=== PATIENT | female | born 1955 | race Caucasian/White ===

== ENCOUNTER 2018-04-30 14:27 | Inpatient (IN) | payer BC, OTHER ==
[~2018-04-30] VITALS: Ht 152.4 cm; Wt 131.5 kg
[2018-04-30 14:30] VITALS: BP 139/112
[2018-04-30 16:46] LABS: URINE BILIRUBIN NEGATIVE (Negative); URINE BLOOD 1+ (Negative); URINE CLARITY SLIGHTLY CLOUDY; URINE COLOR YELLOW; URINE GLUCOSE-RANDOM* NEGATIVE (Negative); URINE KETONES NEGATIVE (Negative); URINE LEUKOCYTES-REFLEX NEGATIVE (Negative); URINE NITRITE-REFLEX NEGATIVE (Negative); URINE PROTEIN (DIPSTICK) NEGATIVE (Negative); URINE UROBILINOGEN 0.2 E.U./dl (0.2-1.0)
[2018-04-30 16:55] LABS: SQUAMOUS 0-3 Few /LPF (0-3)
[2018-04-30 16:56] LABS: CASTS None Seen /LPF (None Seen); CRYSTALS None Seen /LPF (None Seen); URINE RBC 0-2 Rare /HPF (0-2); URINE WBC-REFLEX 0-5 Rare /HPF (0-5)
[2018-04-30 17:04] LABS: HEMATOCRIT 36.9 % (37.0-47.0); HEMOGLOBIN 11.7 gm/dL (12.0-15.0); MCH 22.3 pg (26.0-34.0); MCHC 31.8 g/dL (28.0-37.0); MCV 70.2 fL (80.0-100.0); PLATELET COUNT 315 thou/uL (150-400); RBC 5.26 mil/uL (4.20-5.00); RDW 17.3 % (10.5-14.5); WBC 24.2 thou/uL (4.0-11.0)
[2018-04-30 17:13] LABS: ANION GAP 10 mmol/L (7-16); BUN 65 mg/dL (7-18); CALCIUM 10.3 mg/dL (8.5-10.1); CHLORIDE 98 mmol/L (98-107); CO2 28 mmol/L (21-32); CREATININE 2.5 mg/dL (0.6-1.0); GLUCOSE 139 mg/dL (74-106); POTASSIUM 4.4 mmol/L (3.5-5.1); SODIUM 136 mmol/L (136-145)
[2018-04-30 17:20] LABS: ABSOLUTE NEUTROPHILS 7.3 thou/uL (1.4-8.2); ANISOCYTOSIS 1+; ATYPICAL LYMPHS 1 %; HYPOCHROMASIA 1+; MICROCYTES 1+
[2018-04-30 17:22] LABS: TROPONIN-I <0.06 ng/mL (<0.06)
[2018-04-30 18:08] VITALS: BP 93/48
[2018-04-30] MEDS ORDERED: MYRBETRIQ50 MG PO (18:17)
[2018-04-30] MEDS ORDERED: DEMADEX20 MG PO (18:18)
[2018-04-30] MEDS ORDERED: OXYCONTIN10 M1 PO (18:18)
[2018-04-30] MEDS ORDERED: SAVAYSA60 MG PO (18:19)
[2018-04-30] MEDS ORDERED: ZAROXOLYN 5MG TA5 MG PO (18:19)
[2018-04-30] MEDS ORDERED: LIORESAL 10 MG10 MG PO (18:20)
[2018-04-30] MEDS ORDERED: ACCUPRIL40 MG PO (18:20)
[2018-04-30] MEDS ORDERED: KLOR-CON 1010 MEQ PO ×2 (18:21)
[2018-04-30] MEDS ORDERED: POTASSIUM99 MG PO (18:22)
[2018-04-30] MEDS ORDERED: MAGOX 400400 MG PO (18:22)
[2018-04-30] MEDS ORDERED: ATENOLOL 100MG100 MG PO (18:23)
[2018-04-30] MEDS ORDERED: CARDIZEM CD120 MG PO (18:23)
[2018-04-30] MEDS ORDERED: PRAVACHOL40 MG PO (18:24)
[2018-04-30] MEDS ORDERED: PERCOCET PO (18:24)
[2018-04-30 18:27] VITALS: BP 171/73
[2018-04-30 18:38] VITALS: BP 119/60
[2018-04-30 20:50] VITALS: BP 111/51
[2018-05-01 05:13] VITALS: BP 120/54
[2018-05-01 05:35] LABS: HEMATOCRIT 34.4 % (37.0-47.0); HEMOGLOBIN 10.6 gm/dL (12.0-15.0); MCH 21.5 pg (26.0-34.0); MCHC 30.8 g/dL (28.0-37.0); MCV 69.8 fL (80.0-100.0); RBC 4.93 mil/uL (4.20-5.00); RDW 17.1 % (10.5-14.5); WBC 18.1 thou/uL (4.0-11.0)
[2018-05-01 05:45] LABS: CALCIUM 9.9 mg/dL (8.5-10.1); CREATININE 1.6 mg/dL (0.6-1.0); POTASSIUM 4.1 mmol/L (3.5-5.1)
[2018-05-01 07:30] VITALS: BP 109/55
--- NOTE | 2018-05-01 09:35 | 2DMMODE ---
[facility] [address] [place] [address] 2 D/M-MODE ECHOCARDIOGRAM Name: WINNIE INGRAMJOSE Mendoza Room #: 450-P [facility] IN .#: [id number] Admission: 04/30/18 Attend Phys: Tin Beltran MD Discharge: Date of : 51 Date of Service: 05/01/18 0935 Report #: [id number] THIS REPORT FOR: //name// APPROVED REPORT Study performed: 05/01/2018 08:25:52 EXAM: Comprehensive 2D, Doppler, and color-flow Echocardiogram Patient Location: In-Patient Room #: [facility] Status: routine BSA: 2.19 HR: 56 bpm BP: 109/55 mmHg Rhythm: NSR Other Information Study Quality: Technically Difficult Technically limited study due to body habitus. Indications Hypertension/HDD edema, hx afib 2D Dimensions RVDd: 33.08 mm IVSd: 12.87 (7-11mm) LVOT Diam: 20.48 (18-24mm) LVDd: 50.63 mm PWd: 11.57 (7-11mm) Ascending Ao: 36.40 (22-36mm) LVDs: 32.40 (25-40mm) Aortic Root: 30.21 mm IVC: 19.00 mm Volumes Left Atrial Volume (Systole) Single Plane 4CH: 58.51 mL Single Plane 2CH: 62.13 mL LA ESV Index: 30.00 mL/m2 Aortic Valve AoV Peak Eligio.: 1.71 m/s AO Peak Gr.: 11.67 mmHg LVOT Max P.03 mmHg LVOT Max V: 1.58 m/s PAM Vmax: 3.05 cm2 Mitral Valve [facility] [address] [place] [address] 2 D/M-MODE ECHOCARDIOGRAM Name: TERI INGRAM Room #: [address] [place] [address] [place] [facility]#: [id number] Admission: 04/30/18 Attend Phys: Tin Beltran MD Discharge: Date of : 51 Date of Service: 05/01/18 0935 Report #: [id number] E/A Ratio: 1.3 MV Decel. Time: 262.42 ms MV E Max Eligio.: 0.93 m/s MV A Eligio.: 0.71 m/s MV PHT: 76.10 ms IVRT: 110.73 ms Pulmonary Valve PV Peak Eligio.: 1.13 m/s PV Peak Gr.: 5.16 mmHg Pulmonary Vein P Vein S: 0.64 m/s P Vein A: 0.23 m/s P Vein D: 0.47 m/s P Vein A Dur.: 152.2 msec P Vein S/D Ratio: 1.36 Tricuspid Valve RAP Estimate: 5.00 mmHg Left Ventricle The left ventricle is normal size. There is normal LV segmental wall motion. Mild concentric left ventricular hypertrophy. The left ventricular systolic function is normal. The left ventricular ejection fraction is within the normal range. LVEF is 60-65%. The left ventricular diastolic function is normal. Right Ventricle The right ventricle is normal size. The right ventricular systolic function is normal. Atria The left atrium size is normal. Right atrium is mildly dilated. Aortic Valve The aortic valve is not well visualized. No aortic regurgitation is present. There is no aortic valvular stenosis. Mitral Valve The mitral valve is normal in structure. Mild mitral regurgitation. No evidence of mitral valve stenosis. Tricuspid Valve Tricuspid valve is not well visualized. There is no tricuspid valve regurgitation noted. Unable to assess PA pressure[place] [address] 2 D/M-MODE ECHOCARDIOGRAM Name: TERI INGRAM Reji Room #: 450-P [facility] IN ..#: [id number] Admission: 04/30/18 Attend Phys: Tin Beltran MD Discharge: Date of : 51 Date of Service: 05/01/18 0935 Report #: [id number] The pulmonary valve is normal in structure. There is no pulmonic valvular regurgitation. Great Vessels The aortic root is normal in size. IVC is normal in size and collapses >50% with inspiration. Pericardium There is no pericardial effusion. <Conclusion> Technically difficult study The left ventricular systolic function is normal. There is normal LV segmental wall motion. LVEF is 60-65%. Normal diastolic function The aortic valve is not well visualized. No aortic regurgitation or stenosis The mitral valve is normal in structure. Mild mitral regurgitation. Unable to assess pulmonary artery pressure. There is no pericardial effusion. <ELECTRONICALLY SIGNED> By: Faizan Mora MD, FACC 05/01/1835 4 4 Faizan Mora MD, FACC /INF
[2018-05-01 15:00] VITALS: BP 150/75
[2018-05-01 20:15] VITALS: BP 149/54; BP 149/66
[2018-05-01 20:16] VITALS: BP 168/83
[2018-05-02 05:27] VITALS: BP 148/75
[2018-05-02 06:19] LABS: CALCIUM 10.8 mg/dL (8.5-10.1); CREATININE 1.2 mg/dL (0.6-1.0); POTASSIUM 3.9 mmol/L (3.5-5.1)
[2018-05-02 07:34] VITALS: BP 168/73
[2018-05-02 15:15] VITALS: BP 124/67
[2018-05-02] MEDS ORDERED: AZITHROMYCIN 2250 MG PO (16:21)
[2018-05-02] MEDS ORDERED: DEMADEX20 MG PO (16:22)
[2018-05-02] MEDS ORDERED: PREDNISONE 10 M10 MG PO (16:23)
[2018-05-02 16:41] VITALS: BP 124/67
--- NOTE | 2018-05-03 10:35 | HC ---
[place] [address] CONSULTATION Name: TERI INGRAM Room #: 450-P [facility] [place] ..#: [id number] Admission: 04/30/18 Attend Phys: Tin Beltran MD Discharge: 05/02/18 Date of : 51 Report #: [id number] THIS REPORT FOR: //name// CC: Tin Edmond MD [facility] Lemuel Zarate MD INFECTIOUS DISEASE CONSULTATION ATTENDING PHYSICIAN: Tin Beltran M.D. REASON FOR CONSULTATION: Positive blood culture. HISTORY OF PRESENT ILLNESS: The patient is a 62-year-old white woman admitted through the Emergency Room on 04/30/2018 with lightheadedness and visual disturbances that had come after oral diuretics were increased. The patient is found to have leukocytosis, but she is known to have chronic lymphocytic leukemia. Her initial workup included a set of blood cultures and 1 out of 2 samples revealed gram-positive cocci and vancomycin initiated. The patient previously on Zithromax and Rocephin. The patient today is feeling better. Her symptomatology is definitely improved. Her azotemia also improved. She has received some intravenous fluids and she is on a large dose of systemic steroids. On admission, the patient's blood pressure was as low as 93/48; subsequently, this stabilizes and goes to 168/73. DRUG ALLERGIES: AMOXICILLIN, NAUSEA AND VOMITING. MEDICATIONS: The patient is on treatment with vancomycin 1 g IV every 12 hours, azithromycin 500 mg IV every 24 hours and Rocephin 1 gram IV every 24 hours. She is also receiving treatment with lisinopril 40 mg daily, torsemide 20 mg p.o. daily, albuterol inhalation treatments every 4 hours, atenolol 100 mg daily, diltiazem 120 mg daily, methylprednisolone 62.5 mg IV every 8 hours, baclofen 10 mg p.o. t.i.d. and subcutaneous heparin 5000 units t.i.d. She is on p.r.n. acetaminophen and ondansetron. At home, this patient receives treatment with Mirabegron 50 mg p.o. daily, torsemide 40 mg daily, metolazone 5 mg p.o. daily, edoxaban tosylate 60 mg p.o. daily and Accupril 40 mg p.o. daily. PAST MEDICAL HISTORY: Chronic atrial fibrillation. Diastolic congestive heart failure. Chronic lymphocytic leukemia. Oophorectomy. Previous lumbar laminectomy x [address] Robel Angulo at [facility]. Chronic kidney disease with acute kidney injury, improved with intravenous fluids. SOCIAL HISTORY: See H and P, old records. FAMILY HISTORY: See H and P, old records. [address] [address] CONSULTATION Name: TERI INGRAM Reji Room #: 450-P [facility] IN M.R.#: [id number] Admission: 04/30/18 Attend Phys: Tin Beltran MD Discharge: 05/02/18 Date of : 51 Report #: [id number] REVIEW OF SYSTEMS: See H and P and as above. PHYSICAL EXAMINATION: GENERAL: Obese woman presenting with following vital signs. VITAL SIGNS: Afebrile since admission. Her blood pressure was 93/48 on 04/30/2018 at 1733 hours. After hydration, her blood pressure goes to 168/73. Pulse 74, respirations 20 and O2 saturation 97% on room air. No supplemental oxygen. HEENT: Head normocephalic, atraumatic. Pupils reactive. Mouth, no thrush. Head examination reveals a couple of right-sided parietal and occipital cysts that on CT scan of the head appear to be calcified. NECK: Supple. No thyromegaly or lymphadenopathy. LUNGS: Clear. HEART: S1, S2. No gallop. ABDOMEN: Infraumbilical laparotomy scars. Soft. No masses or megaly. EXTREMITIES: Remain mildly edematous at ankles, but improved according to the patient. NEUROLOGIC: Grossly within normal limits. LABORATORY DATA: On admission, BUN 65; repeat today 41. Creatinine on admission 2.5 and repeat today 1.2. Glucose 193 mg/dL. WBC 24,200, hemoglobin 11.7 g/dL and platelets 315,000. The white blood cell count differential reveals 30% segmented neutrophils, 66% lymphocytes at the time of admission. The urinalysis reveal 1+ blood and bacteriuria; otherwise, essentially negative. MICROBIOLOGY DATA: Urine cultures negative so far. Nasopharyngeal smear negative for influenza A and B. One out of 2 blood cultures revealed gram-positive cocci, identification and sensitivity is pending. Per Radiology evaluation, a CT scan of the head revealed no significant abnormalities, other than calcified cysts on the right posterior parietal and occipital region, possibly calcified as sebaceous cyst. Also, the patient had thickening of the ethmoid, sphenoid and maxillary sinus and linings. Chest x-ray, no acute cardiopulmonary process. There may be some cardiomegaly. ASSESSMENT: 1. Single positive blood culture with Gram-positive cocci, suspect contaminant. 2. Chronic lymphocytic leukemia. 3. Acute kidney injury secondary to dehydration, improved. 4. Chronic atrial fibrillation. 5. Diastolic congestive heart failure. 6. Calcified cysts on the right parietal and occipital regions on the subcutaneous tissues. 7. History of oophorectomy and lumbar laminectomies. SUGGESTIONS AND RECOMMENDATIONS: Since I suspect the blood cultures may be [address] [place] [address] CONSULTATION Name: JUAN JOSE,TERI L Room #: 450-P [facility] IN .R.#: [id number] Admission: 04/30/18 Attend Phys: Tin Beltran MD Discharge: 05/02/18 Date of : 51 Report #: [id number] contaminated blood cultures, we will discontinue the IV vancomycin, since most likely the main problem is that of dehydration. We will proceed to discontinue Rocephin as well as Zithromax for 1 or 2 more days and discontinue. We will obtain ESR, CRP, which may confirm the suspicion that no infection is present at the present time. Dr. Beltran, thank you for requesting my suggestions. <ELECTRONICALLY SIGNED> By: Valentin Yoder MD 05/03/18 1035 [id number] [id number] Valentin Yoder MD /nt
== END 2018-05-02 18:43 | disposition home or self-care (01) | DRG 683 ==
LOC: ER 14:27 → EROBS 18:03 → 4W 18:03
PROVIDERS: Physician Assistant; ADMIT Hospitalist
DX: N17.9 Acute kidney failure, unspecified (principal); Z68.43 Body mass index [BMI] 50.0-59.9, adult; I50.30 Unspecified diastolic (congestive) heart failure; I13.0 Hypertensive heart and chronic kidney disease with heart failure and stage 1 through stage 4 chronic kidney disease, or unspecified chronic kidney disease; E66.9 Obesity, unspecified; E86.0 Dehydration; I48.2 Chronic atrial fibrillation; N18.9 Chronic kidney disease, unspecified; M19.90 Unspecified osteoarthritis, unspecified site; M54.9 Dorsalgia, unspecified; I48.0 Paroxysmal atrial fibrillation; E78.5 Hyperlipidemia, unspecified; I35.8 Other nonrheumatic aortic valve disorders; J32.9 Chronic sinusitis, unspecified; Z90.722 Acquired absence of ovaries, bilateral; Z85.6 Personal history of leukemia; Z79.899 Other long term (current) drug therapy; Z88.8 Allergy status to other drugs, medicaments and biological substances
CPT/HCPCS: 10045

== ENCOUNTER → 2019-01-23 | Outpatient (CLI) | payer OTHER, MEDICARE ==
[~2019-01-23] MED LIST: ACCUPRIL40 MG PO; ATENOLOL 100MG100 MG PO; AZITHROMYCIN 2250 MG PO; CARDIZEM CD120 MG PO; DEMADEX20 MG PO; KLOR-CON 1010 MEQ PO; LIORESAL 10 MG10 MG PO; MAGOX 400400 MG PO; MYRBETRIQ50 MG PO; NORCO 5-325 TA1 EAC1 PO; OXYCONTIN10 M1 PO; PERCOCET PO; POTASSIUM99 M1 PO; POTASSIUM99 MG PO; PRAVACHOL40 MG PO; PREDNISONE 10 M10 MG PO; SAVAYSA60 MG PO; VOLTAREN GEL 1100 G1 TOP; XARELTO10 M1 PO; ZAROXOLYN 5MG TA5 MG PO
== END ==
LOC: HYPER 15:01
DX: L97.211 Non-pressure chronic ulcer of right calf limited to breakdown of skin (principal); L97.811 Non-pressure chronic ulcer of other part of right lower leg limited to breakdown of skin; I89.0 Lymphedema, not elsewhere classified; I10 Essential (primary) hypertension; I25.10 Atherosclerotic heart disease of native coronary artery without angina pectoris; I48.20 Chronic atrial fibrillation, unspecified; E66.01 Morbid (severe) obesity due to excess calories; R60.0 Localized edema; M19.90 Unspecified osteoarthritis, unspecified site; F41.9 Anxiety disorder, unspecified; Z68.43 Body mass index [BMI] 50.0-59.9, adult; Z90.710 Acquired absence of both cervix and uterus; Z85.6 Personal history of leukemia

== ENCOUNTER → 2019-02-08 | Outpatient (CLI) | payer OTHER, MEDICARE ==
[~2019-02-08] MED LIST changes: -NORCO 5-325 TA1 EAC1 PO; -POTASSIUM99 M1 PO; -VOLTAREN GEL 1100 G1 TOP; -XARELTO10 M1 PO
== END ==
LOC: HYPER 02:30
DX: L97.812 Non-pressure chronic ulcer of other part of right lower leg with fat layer exposed (principal); L97.211 Non-pressure chronic ulcer of right calf limited to breakdown of skin; I89.0 Lymphedema, not elsewhere classified; E66.01 Morbid (severe) obesity due to excess calories; R60.0 Localized edema; I48.20 Chronic atrial fibrillation, unspecified; I10 Essential (primary) hypertension; I25.10 Atherosclerotic heart disease of native coronary artery without angina pectoris; M19.90 Unspecified osteoarthritis, unspecified site; Z85.6 Personal history of leukemia; Z68.43 Body mass index [BMI] 50.0-59.9, adult; F41.9 Anxiety disorder, unspecified

== ENCOUNTER → 2019-02-22 | Outpatient (CLI) | payer OTHER, MEDICARE | LOC: HYPER 05:04 | DX: L97.211 Non-pressure chronic ulcer of right calf limited to breakdown of skin (principal); I89.0 Lymphedema, not elsewhere classified; E66.8 Other obesity; I48.20 Chronic atrial fibrillation, unspecified; I10 Essential (primary) hypertension; I48.91 Unspecified atrial fibrillation; I25.10 Atherosclerotic heart disease of native coronary artery without angina pectoris; M19.90 Unspecified osteoarthritis, unspecified site; E66.01 Morbid (severe) obesity due to excess calories; R60.0 Localized edema; R05 Cough; F41.9 Anxiety disorder, unspecified; Z68.43 Body mass index [BMI] 50.0-59.9, adult ==

== ENCOUNTER → 2019-03-20 | Outpatient (CLI) | payer OTHER, MEDICARE ==
[~2019-03-20] VITALS: Ht 162.6 cm; Wt 131.5 kg
[~2019-03-20] MED LIST changes: +NORCO 5-325 TA1 EAC1 PO; +POTASSIUM99 M1 PO; +VOLTAREN GEL 1100 G1 TOP; +XARELTO10 M1 PO
[2019-03-20 14:42] VITALS: BP 140/71
--- NOTE | 2019-03-20 15:06 | NUR ---
Pain Clinic Assessment: 1. History of Osteoarthritis: KNEES LEFT HIP SPINE History of Rheumatoid Arthritis: DENIES 2. Height: 5 ft. 4 in. 162.6 cm. Weight: 290.0 lb. oz. 131.544 kg. Patient's BMI: 49.8 3. Vital Signs: BP: 140/71 Pulse: 66 Resp: 14 Temp: 02 Sat: 99 ECG Mon: 4. Pain Intensity: 4-6 5. Fall Risk: Dizziness: Y Needs help standing or walking: Y Fallen in the last 3 months: Y Fall risk comments: 6. Patient on Blood Thinner: XARELTO 7. History of Hypertension: Y 8. Opioid Therapy greater than 6 weeks: Y Opiate Contract Signed: 9. Risk Assessment Tool Provided: 10. Functional Assessment Tool: 11. Recreational Drug Use: Never Drug Type: Tobacco Use: Never Smoker Tobacco Type: Amount or Packs/day: How Many Years: Alcohol Use: Yes Frequency: Special Occasions Quant:
--- NOTE | 2019-03-21 12:03 | HPC ---
[facility] [place] [address] PAIN MANAGEMENT CONSULTATION Name: TERI INGRAM Room #: REG [facility].#: [id number] Admission: 03/20/19 Attend Phys: Felix Robertson DO Discharge: Date of : 51 Report #: [id number] THIS REPORT FOR: //name// CC: Felix Zarate DATE OF SERVICE: 03/20/2019 REFERRING NURSE PRACTITIONER: Catie Perez. CHIEF COMPLAINT: Bilateral knee pain. HISTORY OF PRESENT ILLNESS: As you know, the patient is a class 3 morbidly obese 63-year-old female with longstanding history of bilateral knee pain. She has been advised by Orthopedics. She needs to undergo total knee arthroplasty, but due to her weight, she is not a candidate to undergo the procedure. She has trialled conservative treatment option utilizing kwro-hfe-[id number] medications such as nonsteroidal anti-inflammatory, Salonpas patches and other topical creams without benefit. She has undergone bilateral intra-articular knee injections with steroid medications, which provided some benefit, also undergoing Synvisc injections and Supartz injections, though these provided only minimal improvement in pain. She sought evaluation through Neurosurgery to discuss bilateral knee pain being considered a possible lumbar spine issue. She was evaluated by Neurosurgery and advised that the bilateral knee pain is not consistent with lumbar radiculopathy and she was subsequently referred to our clinic with the suggestions of undergoing genicular nerve ablations. The patient indicates today pain is continuous and steady with momentary and transient exacerbation of symptoms. She describes the pain as shooting, crushing, sharp, stabbing, tender. She places current pain score 4/10, daily average of 6/10, worst pain has been 8/10. The patient states standing, walking, any type of weightbearing and even sometimes lying down exacerbates her bilateral knee pain. Heat, pool exercises and seated position tends to improve pain. She has been referred to our service to discuss treatment options for bilateral knee pain due to severe osteoarthritis secondary to body habitus. PAST MEDICAL HISTORY: 1. Chronic anemia. 2. Hypertension. 3. CLL. 4. Degenerative joint disease. 5. Osteoarthritis. 6. Class 3 morbid obesity. PAST SURGICAL HISTORY: [facility] [address] [place] [address] PAIN MANAGEMENT CONSULTATION Name: TERI INGRAM Room #: REG [facility].#: [id number] Admission: 03/20/19 Attend Phys: Felix Robertson DO Discharge: Date of : 51 Report #: [id number] 1. Left oophorectomy. 2. Ulnar reduction, left sided. 3. Right total shoulder arthroplasty. 4. Lumbar laminectomy x 3. SOCIAL HISTORY: The patient denies tobacco, IV or illicit drug use. Admits occasional alcohol beverage. 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 She is not receiving workmen's compensation or is she trying to obtain disability benefits. She is not in litigation in regards to pain. She is unaccompanied today. REVIEW OF SYSTEMS: Positive for fatigue and weakness, frequent and recurrent headaches, eye disease, wearing corrective eyewear, hearing loss with tinnitus, nosebleeds, shortness of breath, walking or lying flat, atrial fibrillation, palpitations, changes in bowel movements, frequent diarrhea interspersed with constipation, frequent urination, nocturia, incontinence with dribbling to urine, sexual difficulty, rash and itching, changes in skin color and texture, hair and nail texture changes, lightheadedness and dizziness, numbness and tingling sensations, head injury, excessive urination, heat and cold intolerance, bleeding and bruising tendencies, anemia and morbid obesity. All other review of systems negative per 12-point review of systems other than those listed in history of present illness. Pain impact score 46/70 indicating moderate to severe interference of daily activities secondary to pain. ALLERGIES: CLAVULANIC ACID and AMOXICILLIN. CURRENT MEDICATIONS: Hydrocodone 5/325 one tab every 6 hours p.r.n. for pain, diclofenac gel 1% solution applied topically up to 4 times a day, Xarelto 10 mg per day, Percocet 5/325 one tab p.o. q. 8 hours p.r.n., extreme pain, pravastatin 40 mg per day, diltiazem 120 mg once a day, atenolol 100 mg once a day, magnesium oxide 400 mg once a day, potassium gluconate 99 mg once a day, baclofen 10 mg 3 times a day p.r.n., quinapril 40 mg per day, Myrbetriq 50 mg once a day. IMAGING: No imaging available for the knees. Imaging of the lumbar spine obtained on 03/09/2019 shows advanced spondylosis without severe central canal stenosis. There are multilevel severe neural foraminal narrowing at L2-L3, L3-L4 and L4-L5. PQRS: The patient has known osteoarthritic changes of the lumbar spine, bilateral knees, left hip. No rheumatoid arthritis. She is placing pain intensity today 4-6/10. She is a fall risk, has had a fall in last 3 months, but does not utilize any type of ambulatory device. She is on blood thinner in the form of Xarelto. She is treated for hypertension. She has been on [address] [address] PAIN MANAGEMENT CONSULTATION Name: TERI INGRAM Room #: REG [facility]#: [id number] Admission: 03/20/19 Attend Phys: Felix Robertson DO Discharge: Date of : 51 Report #: [id number] opioids and has a low to moderate level of opioid addiction potential based on our assessment tool. Pain impact score 46/70 equaling moderate to severe interference of daily activities secondary to pain. PHYSICAL EXAMINATION: VITAL SIGNS: Blood pressure 140/71, pulse 66, respiratory rate 14 and unlabored. The patient is 99% on room air. Height 5 feet 4 inches tall, weight 290 pounds, BMI calculated 49.8. GENERAL: Well-developed, well-nourished, well-hydrated, class 3 morbidly obese 63-year-old female, appears her stated age. She is placing pain today 4-10/02. HEENT: Normocephalic, atraumatic. Pupils equal, round and reactive to light. Extraocular muscles are intact. Sclerae nonicteric without injection. NEUROLOGIC: Cranial nerves 2-12 grossly intact. Speech fluent. The patient deemed a fair historian. LUNGS: Clear to auscultation bilaterally. No wheeze, rhonchi, no rales. CARDIOVASCULAR: Regular, without murmur, gallop or rub. ABDOMEN: Soft, obese, normoactive bowel sounds. EXTREMITIES: Show no clubbing, no cyanosis, bilateral lower extremity 2+ nonpitting edema. MUSCULOSKELETAL: The patient has a palpatory tenderness over the bilateral knees. Pain is elicited with standing from a seated position. There is pain elicited with both active and passive range of motion of bilateral knees today. ASSESSMENT: 1. Bilateral knee pain. 2. Severe bilateral knee osteoarthritis. 3. Severe morbid obesity. 4. Chronic intractable pain. PLAN: 1. Based on today's physical exam and history the patient has provided, the description the patient uses in regards to pain as well as the location of symptoms, likely source of the patient's pain is the knees themselves. I do not note any radicular symptoms that would be consistent with the lumbar spine radiating to the knee itself. The patient has no pain or symptoms in the distribution of L4, which would be a dermatomal responsible for the innervation and pain generation. It does appear the patient is suffering from worsening osteoarthritic changes of the knees due to her excessive weight. We have discussed with the patient's treatment options for bilateral knee pain today. The following was discussed with the patient. We discussed physical therapy, stretching exercises and a concerted effort at weight loss. We discussed medication management utilizing either topical agent, which can have a limited effects. We discussed adjustments in her current medications, providing an oral consistent nonsteroidal anti-inflammatory as an option. She is already on opioids being provided by her neurosurgeon and those did not be adjusted further and are not typically indicated as a long-term treatment for osteoarthritic [address] [address] PAIN MANAGEMENT CONSULTATION Name: TERI INGRAM Room #: REG [facility] Story#: [id number] Admission: 03/20/19 Attend Phys: Felix Robertson DO Discharge: Date of : 51 Report #: [id number] pain. We also discussed intra-articular knee injections utilizing steroid medications. I do not feel that Synvisc or Supartz will provide much in the way of benefit as the patient has significant enough changes that the medication will extravasate from the knees quite quickly due to the weight and the meniscal injuries that have been noted. Steroid injections can provide some benefit and have in the past and this might be beneficial. We did discuss the possibility of having the patient look into genicular nerve blocks and ultimately, radiofrequency lesioning of those nerves. We do not provide this at any of our facility. She would have to seek another physician to be able to perform this procedure. She has seen Dr. Anthony Virk, who advised he could perform the procedure, but did not warn the patient about denervation concerns and what may happen ultimately to the joint with that denervation. The patient can look into this treatment option, though we would not recommend it on knees that are not treated with total knee arthroplasties as denervation can lead to degradation of the joint further. We also discussed the surgical options, which I believe, the patient will be needing sooner rather than later. I do understand that her weight is a concern and she could discuss this with her orthopedic surgeon and her primary care physician in regards to possible bariatric surgery to assist in weight loss, thus making the patient a candidate for total knee arthroplasty. After this very long discussion with the patient in regards to treatment options, the following was proposed. 2. We have advised the patient we will be willing to provide bilateral knee injections with steroids under fluoroscopic guidance as our treatment course. The patient would have to have clearance to come off her Xarelto for 3 days prior to the procedure, so that we can safely perform this injection without causing the potential of increased risk for hemarthrosis. The patient will gain clearance to come off the Xarelto and return to undergo bilateral knee injections next week. We have made the patient a tentative appointment if she needs to adjust that appointment or cannot come off the Xarelto, she can call and cancel. 3. We wish to thank nurse practitioner, Chris, for the referral of the patient to our clinic. We will trial the injections proposed today and return her care to your capable services. If further evaluation or consideration for the genicular nerve blocks is recommended, then you will have to refer to physicians that perform this procedure. Again, we wish to thank you for the opportunity to see this patient in consultation. <ELECTRONICALLY SIGNED> By: Felix Robertson DO 03/21/19 1203 [id number] Felix Robertson DO /nt
== END ==
LOC: PAIN 06:52
DX: M25.561 Pain in right knee (principal); M25.562 Pain in left knee; I10 Essential (primary) hypertension; M17.0 Bilateral primary osteoarthritis of knee; G89.4 Chronic pain syndrome

== ENCOUNTER → 2019-03-27 | Outpatient (CLI) | payer OTHER, MEDICARE ==
[~2019-03-27] VITALS: Ht 157.5 cm; Wt 136.6 kg
[2019-03-27 10:24] VITALS: BP 133/71
--- NOTE | 2019-03-27 10:38 | NUR ---
Pain Clinic Assessment: 1. History of Osteoarthritis: KNEES LEFT HIP SPINE History of Rheumatoid Arthritis: DENIES 2. Height: 5 ft. 2 in. 157.5 cm. Weight: 301.2 lb. oz. 136.624 kg. Patient's BMI: 55.1 3. Vital Signs: BP: 133/71 Pulse: 61 Resp: 20 Temp: 02 Sat: 100 ECG Mon: 4. Pain Intensity: 4 5. Fall Risk: Dizziness: N Needs help standing or walking: Y Fallen in the last 3 months: N Fall risk comments: 6. Patient on Blood Thinner: XARELTO 7. History of Hypertension: Y 8. Opioid Therapy greater than 6 weeks: Y Opiate Contract Signed: 9. Risk Assessment Tool Provided: 3-LOW 10. Functional Assessment Tool: 11. Recreational Drug Use: Never Drug Type: Tobacco Use: Never Smoker Tobacco Type: Amount or Packs/day: How Many Years: Alcohol Use: Yes Frequency: Special Occasions Quant:
--- NOTE | 2019-03-28 12:58 | HPC ---
[facility] [place] [address] PAIN MANAGEMENT CONSULTATION Name: TERI INGRAM Room #: REG [facility].#: [id number] Admission: 03/27/19 Attend Phys: Felix Robertson DO Discharge: Date of : 51 Report #: [id number] THIS REPORT FOR: //name// CC: Felix Zarate DATE OF SERVICE: 03/27/2019 REFERRING PHYSICIAN: Catie Perez RN CHIEF COMPLAINT: Bilateral knee pain. HISTORY OF PRESENT ILLNESS: As you know, the patient is a pleasant, severely morbidly obese female who has a longstanding history of bilateral knee pain. She has been advised by Orthopedics that she will need to undergo total knee arthroplasty as she is now "bone on bone." Unfortunately, given the patient's excessive body weight, she is not a candidate to undergo total knee arthroplasties. She was advised she needs to lose about 100 pounds before this could be considered. Unfortunately, her weight continues to increase as she is unable to participate in daily activities. She is swimming periodically and states that this is somewhat beneficial, but she is not losing weight consistent enough to be able to undergo total knee arthroplasties at present. She was established at today's appointment to undergo bilateral intra-articular knee injections in hopes of improving pain. We did advise the patient if this was ineffective, further treatment options would include only the possibility of stem cell injections she would have to seek another physician to obtain, or possibly discuss her case with a bariatric surgeon to undergo bariatric surgery and thus can then be a candidate for total knee arthroplasty. She returns today to undergo bilateral knee injections. ALLERGIES: CLAVULANIC ACID, AMOXICILLIN. CURRENT MEDICATIONS: See extensive list in chart. SOCIAL HISTORY: The patient denies tobacco, IV or illicit drug use. Admits to an occasional alcohol beverage. 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 IMAGING: No new imaging available. PQRS: The patient has known arthritic changes of the lumbar spine, bilateral knees and left hip. No rheumatoid arthritis. She is placing pain today at 4/10. She is a fall risk, but has not had a fall in the last 3 months. She is on blood thinner in the form of Xarelto and has discontinued the medication in preparation for today's procedure. She is treated for hypertension. She is on [address] [address] PAIN MANAGEMENT CONSULTATION Name: TERI INGRAM Room #: REG CLI [facility]#: [id number] Admission: 03/27/19 Attend Phys: Felix Robertson DO Discharge: Date of : 51 Report #: [id number] chronic opioids and has a [id number] risk of opioid addiction. She is placing a pain impact score at 44/70, [id number] interference in daily activities secondary to pain. PHYSICAL EXAMINATION: VITAL SIGNS: Blood pressure 133/71, pulse is 61, respiratory rate 20 and unlabored. The patient is 100% on room air. Height 5 feet 2 inches tall, weight 301.2 pounds, BMI calculated 55.1. GENERAL: Well-developed, well-nourished, well-hydrated, severely morbidly obese 63-year-old female, appearing stated age, placing current pain score at 4/10. HEENT: Normocephalic, atraumatic. Pupils are equal, round, reactive to light. EXTREMITIES: Show no clubbing, no cyanosis and no significant lower extremity edema. MUSCULOSKELETAL: There is palpatory tenderness noted over the bilateral knees, right greater than left. Pain is elicited with standing from a seated position. Active and passive range of motion of bilateral knees causes intensification of pain. ASSESSMENT: 1. Bilateral knee pain. 2. Bilateral knee osteoarthritis. 3. Severe morbid obesity. 4. Chronic intractable pain. PLAN: 1. The patient returns today in a followup visit to undergo bilateral intra-articular knee injections. She has been evaluated by Orthopedic Surgery and advised she will need a total knee arthroplasty on both sides sooner rather than later, but unfortunately, given her excessive body weight she is not a candidate to undergo the procedure. We did discuss with the patient at the last visit we are limited in what we can provide from an intra-articular standpoint. We determined that steroid injections may be somewhat beneficial and could provide some improvement in symptoms, allowing the patient to return to some of her activities of daily living, but we do understand there is limitation with this medication. We discussed the use of Synvisc and/or Supartz, but all these medications provide is lubrication to the joint, but does not provide any long-term benefit. We also discussed the fact that the patient will likely, if she cannot lose the weight, undergo bariatric surgery to lose the weight she needs to lose to have the total knee arthroplasties, which will then allow the patient to return to her some relative normal function. She has considered these options, but has returned today to undergo intra-articular knee injections. 2. The patient was advised of risks and benefits of intraarticular knee injections. These risks include but are not necessarily limited to bleeding, bruising, infection, worsening pain, no relief of pain; also risk of temporary or permanent muscle weakness, temporary or permanent nerve damage, possible [address] [address] PAIN MANAGEMENT CONSULTATION Name: TERI INGRAM Room #: REG [facility]#: [id number] Admission: 03/27/19 Attend Phys: Felix Robertson DO Discharge: Date of : 51 Report #: [id number] joint destruction and . The patient states understood and wished to proceed. 3. No medication changes made at today's visit. She can continue current medical therapy as previously prescribed. 4. We will see the patient back in a followup visit on an as needed basis for possible next in the series of intra-articular knee injections. PROCEDURE NOTE PROCEDURE: Bilateral intra-articular knee injections under fluoroscopic guidance. DESCRIPTION OF PROCEDURE: After obtaining written consent, the patient was taken back to the fluoroscopy suite, placed in a supine position. The image intensifier was then brought into position over the right knee and AP imaging was obtained. The area of the lateral knee was then prepped and draped in aseptic fashion using chlorhexidine. A 27-gauge 1-1/4 inch needle was then used to anesthetize the skin and subcutaneous tissue overlying the site of injection. A 25-gauge 3-1/2-inch needle was then advanced into the right knee under direct fluoroscopic imaging. Once entering the knee, aspiration noted to be negative for heme; 0.2 mL of Omnipaque injected. An excellent right knee arthrogram was obtained. After negative aspiration for heme, 3 mL of a solution containing 1 mL 40 mg per mL, 40 mg total triamcinolone along with 2 mL bupivacaine 0.5% injected slowly. Needle retracted chcf, flushed with 1 mL of lidocaine 1%, then removed. Sterile bandage was placed over injection site. Our attention was then directed to the left knee. The image intensifier was then brought into position over the left knee and AP imaging was obtained. The area of the lateral knee was then prepped and draped in aseptic fashion using chlorhexidine. A 27-gauge 1-1/4 inch needle was then used to anesthetize the skin and subcutaneous tissue with 2 mL of 1% lidocaine. A 25-gauge 3-1/2 inch spinal needle was advanced under direct fluoroscopy guidance into the left knee joint. After entering the joint, aspiration noted to be negative for heme; 0.3 mL of Omnipaque injected. Excellent left knee arthrogram was obtained. After negative aspiration for heme, 3 mL of a solution containing 1 mL 40 mg per mL, 40 mg total triamcinolone along with 2 mL bupivacaine 0.5% injected slowly. Needle retracted chcf, flushed with 1 mL of 1% lidocaine, then removed. Sterile bandage was placed over the injection site. The patient tolerated both procedures well. [place] [address] PAIN MANAGEMENT CONSULTATION Name: JUAN JOSETERIIDALIA JACOBS Room #: REG [facility] Story#: [id number] Admission: 03/27/19 Attend Phys: Felix Robertson DO Discharge: Date of : 51 Report #: [id number] recovery room in stable condition. No apparent complications. After meeting discharge criteria, the patient was discharged home. <ELECTRONICALLY SIGNED> By: Felix Robertson DO 03/28/19 [id number] Felix Robertson DO /nt
== END | disposition home or self-care (01) ==
LOC: PAIN 06:47
DX: M25.561 Pain in right knee (principal); M25.562 Pain in left knee; M17.0 Bilateral primary osteoarthritis of knee; E66.01 Morbid (severe) obesity due to excess calories; G89.29 Other chronic pain; M16.12 Unilateral primary osteoarthritis, left hip; I10 Essential (primary) hypertension; Z98.890 Other specified postprocedural states; Z79.899 Other long term (current) drug therapy; Z79.01 Long term (current) use of anticoagulants; Z79.891 Long term (current) use of opiate analgesic; Z88.8 Allergy status to other drugs, medicaments and biological substances; Z68.43 Body mass index [BMI] 50.0-59.9, adult

== ENCOUNTER → 2019-04-11 | Outpatient (CLI) | payer OTHER, MEDICARE ==
[~2019-04-11] VITALS: Ht 157.5 cm; Wt 138.1 kg
--- NOTE | ~2019-04-11 | HPC ---
[facility] [place] [address] PAIN MANAGEMENT CONSULTATION Name: TERI INGRAM Room #: REG [facility].#: [id number] Admission: 04/11/19 Attend Phys: Felix Robertson DO Discharge: Date of : 51 Report #: [id number] THIS REPORT FOR: //name// CC: Felix Zarate DATE OF SERVICE: 04/11/2019 CHIEF COMPLAINT: Low back pain, bilateral lower extremity pain, chronic knee pain. HISTORY OF PRESENT ILLNESS: As you know, the patient is a 63-year-old female who has been referred to our service by her neurosurgery team to undergo lumbar epidural injections under fluoroscopic guidance and to address bilateral knee pain. At last visit, the patient underwent bilateral intra-articular knee injections, which provided improvement in symptoms according to the patient of about 30% -40%. She is now placing pain score in her knees at about 6/10. She is also complaining of chronic low back pain, bilateral lower extremity pain for which she is reporting pain score 4/10. She states the pain is dull, aching, numbness and tingling, exacerbated with walking, improves with medications. She has been referred to our clinic by the neurosurgery team to undergo a lumbar epidural injection to determine if she will be amenable to such treatment options. She denies injury or trauma to the low back that may have led to symptom development. ALLERGIES: CLAVULANIC ACID, AMOXICILLIN. CURRENT MEDICATIONS: See chart. SOCIAL HISTORY: The patient denies tobacco, IV or illicit drug use. Admits to occasional alcohol beverage. 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 IMAGING: No new imaging available. PQRS: The patient has known arthritic changes of the lumbar spine, bilateral knees and left hip. No rheumatoid arthritis. She is placing pain intensity today 4/10. She is a fall risk, but has not had a fall in last 3 months. She is on Xarelto, but has discontinued this medication over the past 3 days in preparation for a lumbar epidural injection. She is treated for hypertension. She is on chronic opioids, but has a low opioid addiction potential. Pain impact score 44/70 indicating moderate interference of daily activities secondary to pain. PHYSICAL EXAMINATION: [facility] [address] [place] [address] PAIN MANAGEMENT CONSULTATION Name: TERI INGRAM Room #: REG [facility].#: [id number] Admission: 04/11/19 Attend Phys: Felix Robertson DO Discharge: Date of : 51 Report #: [id number] VITAL SIGNS: Blood pressure 146/84, pulse 68, respiratory rate 20 and unlabored. The patient is 98% on room air. Height 5 feet 2 inches tall, weight 304.4 pounds, BMI calculated 55.7. GENERAL: Well-developed, well-nourished, well-hydrated, severely morbidly obese 63-year-old female, appears stated age, pain is rated today 4/10. HEENT: Normocephalic, atraumatic. Pupils equal, round, reactive to light. Speech fluent. EXTREMITIES: Show no clubbing, no cyanosis, 1-2+ pitting lower extremity edema noted. MUSCULOSKELETAL: Palpatory tenderness is noted over the paraspinal musculature of lower lumbar spine. No spinous process tenderness. Seated straight leg raising negative. Supine straight leg raising essentially negative. Jose's test negative. Modified Gaenslen's positive for axial low back pain. Ankle clonus negative. ASSESSMENT: 1. Lumbar radiculopathy. 2. Lumbosacral spondylosis with radiculopathy. 3. Degeneration of lumbar spine. 4. Chronic intractable pain. 5. Bilateral knee pain. 6. Bilateral knee osteoarthritis. 7. Severe morbid obesity. 8. Chronic intractable pain. PLAN: 1. The patient has returned today in followup visit having noted improvement in the bilateral knee pain with the intra-articular knee injections provided at our last visit. She reports about a 30% overall pain, which is a good improvement for this patient given her body habitus and extent of knee osteoarthritis. We are pleased to see she is seeing improvement and continued analgesic benefit. She returns today requesting a lumbar epidural injection under fluoroscopic guidance for which the patient was originally referred to our clinic by her neurosurgery team. We have discussed with the patient the risks and benefits of a lumbar epidural injection. These risks include but are not necessarily limited to bleeding, bruising, infection, worsening pain, no relief of pain, also risk of temporary or permanent muscle weakness, temporary or permanent nerve damage, possible paralysis, post-dural puncture headache and . The patient states understood and wished to proceed. 2. No medication changes made at today's visit. We recommend the patient to continue current medical therapy as prior prescribed. 3. We will see the patient back in followup visit on an as needed basis for next in the series of lumbar epidural injections or to discuss further treatment for the bilateral knees. [facility] [address] [place] [address] PAIN MANAGEMENT CONSULTATION Name: TERI INGRAM Room #: REG [facility]#: [id number] Admission: 04/11/19 Attend Phys: Felix RobertsonDO Discharge: Date of : 51 Report #: [id number] DESCRIPTION OF PROCEDURE: L5-S1 interlaminar epidural steroid injection under fluoroscopic guidance. This is the first procedure of the second series that the patient is undergoing. After obtaining written consent, the patient was taken back to the fluoroscopy suite, placed in a prone position with pillow under the abdomen to decrease lumbar lordosis. The skin overlying the lumbosacral area was then prepped and draped in aseptic fashion. The L5-S1 vertebral interspace was then identified by AP fluoroscopy. The skin and subcutaneous tissue overlying the target site of injection was anesthetized with 3 mL 1% lidocaine. A 20-gauge 4.5 inch Tuohy needle was then advanced under fluoroscopic guidance towards the epidural space using a left paramedian approach. The epidural space was identified using loss of resistance to air technique. After negative aspiration for heme or cerebrospinal fluid, a total of 1 mL of Omnipaque was injected. A lumbar epidurogram was confirmed using both AP and lateral fluoroscopy. After negative aspiration for heme or cerebrospinal fluid, 5 mL of a solution containing 2 mL 40 mg per mL, 80 mg total triamcinolone along with 3 mL lidocaine 1% was injected in increments. Contrast spread was noted on posterior epidural space. The needle was then retracted approximately half way and needle tract flushed with 1 mL of 1% lidocaine. Needle was then removed. There were no apparent sensory or motor deficits in the lower extremity following the procedure. A sterile bandage was placed over the injection site. The heart rate, pulse, oximetry and blood pressure were continuously monitored after the procedure. There were no apparent complications. The patient tolerated the procedure well and was carefully escorted to the recovery room in stable condition. There were no apparent complications. After meeting discharge criteria, the patient was then discharged home. By: [id number] Felix Robertson DO /nt
[2019-04-11 14:44] VITALS: BP 146/84
--- NOTE | 2019-04-11 14:56 | NUR ---
Pain Clinic Assessment: 1. History of Osteoarthritis: KNEES LEFT HIP SPINE History of Rheumatoid Arthritis: DENIES 2. Height: 5 ft. 2 in. 157.5 cm. Weight: 304.4 lb. oz. 138.075 kg. Patient's BMI: 55.7 3. Vital Signs: BP: 146/84 Pulse: 68 Resp: 20 Temp: 02 Sat: 98 ECG Mon: 4. Pain Intensity: 4 5. Fall Risk: Dizziness: N Needs help standing or walking: Y Fallen in the last 3 months: N Fall risk comments: 6. Patient on Blood Thinner: XARELTO 7. History of Hypertension: Y 8. Opioid Therapy greater than 6 weeks: Y Opiate Contract Signed: 9. Risk Assessment Tool Provided: 3-LOW 10. Functional Assessment Tool: 11. Recreational Drug Use: Never Drug Type: Tobacco Use: Never Smoker Tobacco Type: Amount or Packs/day: How Many Years: Alcohol Use: Yes Frequency: Special Occasions Quant:
== END | disposition home or self-care (01) ==
LOC: PAIN 07:02
DX: M51.16 Intervertebral disc disorders with radiculopathy, lumbar region (principal); M47.27 Other spondylosis with radiculopathy, lumbosacral region; G89.29 Other chronic pain; M17.0 Bilateral primary osteoarthritis of knee; I10 Essential (primary) hypertension; E66.01 Morbid (severe) obesity due to excess calories; M19.90 Unspecified osteoarthritis, unspecified site; Z98.890 Other specified postprocedural states; Z79.891 Long term (current) use of opiate analgesic; Z68.43 Body mass index [BMI] 50.0-59.9, adult; Z88.8 Allergy status to other drugs, medicaments and biological substances; Z79.01 Long term (current) use of anticoagulants; Z79.899 Other long term (current) drug therapy

== ENCOUNTER → 2019-06-26 | Outpatient (CLI) | payer OTHER, MEDICARE | LOC: HYPER 13:25 | DX: L97.821 Non-pressure chronic ulcer of other part of left lower leg limited to breakdown of skin (principal); I89.0 Lymphedema, not elsewhere classified; C91.10 Chronic lymphocytic leukemia of B-cell type not having achieved remission; R60.0 Localized edema; I10 Essential (primary) hypertension; I25.10 Atherosclerotic heart disease of native coronary artery without angina pectoris; M19.90 Unspecified osteoarthritis, unspecified site; R21 Rash and other nonspecific skin eruption; I48.20 Chronic atrial fibrillation, unspecified; E66.01 Morbid (severe) obesity due to excess calories; F41.9 Anxiety disorder, unspecified; Z68.43 Body mass index [BMI] 50.0-59.9, adult; Z90.710 Acquired absence of both cervix and uterus ==

== ENCOUNTER → 2019-11-13 | Outpatient (CLI) | payer OTHER, MEDICARE | LOC: HYPER 13:07 | PROVIDERS: ATTEND Emergency Medicine | DX: L97.822 Non-pressure chronic ulcer of other part of left lower leg with fat layer exposed (principal); I89.0 Lymphedema, not elsewhere classified; R21 Rash and other nonspecific skin eruption; I87.2 Venous insufficiency (chronic) (peripheral); E66.01 Morbid (severe) obesity due to excess calories; R60.0 Localized edema; I48.20 Chronic atrial fibrillation, unspecified; I10 Essential (primary) hypertension; I25.10 Atherosclerotic heart disease of native coronary artery without angina pectoris; M19.90 Unspecified osteoarthritis, unspecified site; F41.9 Anxiety disorder, unspecified; Z85.6 Personal history of leukemia; Z68.43 Body mass index [BMI] 50.0-59.9, adult ==

== ENCOUNTER → 2019-11-27 | Outpatient (CLI) | payer OTHER, MEDICARE | LOC: HYPER 11:28 | PROVIDERS: ATTEND Emergency Medicine | DX: L97.822 Non-pressure chronic ulcer of other part of left lower leg with fat layer exposed (principal); L97.222 Non-pressure chronic ulcer of left calf with fat layer exposed; I89.0 Lymphedema, not elsewhere classified; L97.811 Non-pressure chronic ulcer of other part of right lower leg limited to breakdown of skin; R21 Rash and other nonspecific skin eruption; R60.0 Localized edema; E66.01 Morbid (severe) obesity due to excess calories; I87.2 Venous insufficiency (chronic) (peripheral); I48.20 Chronic atrial fibrillation, unspecified; I10 Essential (primary) hypertension; I48.91 Unspecified atrial fibrillation; I25.10 Atherosclerotic heart disease of native coronary artery without angina pectoris; M19.90 Unspecified osteoarthritis, unspecified site; F41.9 Anxiety disorder, unspecified; Z85.6 Personal history of leukemia; Z68.43 Body mass index [BMI] 50.0-59.9, adult ==

== ENCOUNTER → 2019-12-11 | Outpatient (CLI) | payer OTHER, MEDICARE | LOC: HYPER 14:20 | PROVIDERS: ATTEND Emergency Medicine | DX: L97.822 Non-pressure chronic ulcer of other part of left lower leg with fat layer exposed (principal); L97.221 Non-pressure chronic ulcer of left calf limited to breakdown of skin; L97.211 Non-pressure chronic ulcer of right calf limited to breakdown of skin; I89.0 Lymphedema, not elsewhere classified; R60.0 Localized edema; E66.01 Morbid (severe) obesity due to excess calories; E66.8 Other obesity; I87.2 Venous insufficiency (chronic) (peripheral); I48.20 Chronic atrial fibrillation, unspecified; I10 Essential (primary) hypertension; I25.10 Atherosclerotic heart disease of native coronary artery without angina pectoris; M19.90 Unspecified osteoarthritis, unspecified site; F41.9 Anxiety disorder, unspecified; Z68.43 Body mass index [BMI] 50.0-59.9, adult ==

== ENCOUNTER → 2019-12-18 | Outpatient (CLI) | payer OTHER, MEDICARE | LOC: SJCVCIMAG 07:12 | PROVIDERS: ATTEND Internal Medicine Cardiovascular Disease | DX: I35.8 Other nonrheumatic aortic valve disorders (principal); R60.0 Localized edema; I48.0 Paroxysmal atrial fibrillation; E78.00 Pure hypercholesterolemia, unspecified; D68.59 Other primary thrombophilia; E66.9 Obesity, unspecified; I10 Essential (primary) hypertension; Z82.49 Family history of ischemic heart disease and other diseases of the circulatory system; Z79.899 Other long term (current) drug therapy ==

== ENCOUNTER → 2019-12-25 | Outpatient (CLI) | payer OTHER, MEDICARE | LOC: HYPER 11:06 | PROVIDERS: ATTEND Specialist | DX: L97.822 Non-pressure chronic ulcer of other part of left lower leg with fat layer exposed (principal); L97.222 Non-pressure chronic ulcer of left calf with fat layer exposed; L97.811 Non-pressure chronic ulcer of other part of right lower leg limited to breakdown of skin; I89.0 Lymphedema, not elsewhere classified; R60.0 Localized edema; I87.2 Venous insufficiency (chronic) (peripheral); I48.20 Chronic atrial fibrillation, unspecified; I10 Essential (primary) hypertension; I25.10 Atherosclerotic heart disease of native coronary artery without angina pectoris; E66.01 Morbid (severe) obesity due to excess calories; M19.90 Unspecified osteoarthritis, unspecified site; Z85.6 Personal history of leukemia; Z68.43 Body mass index [BMI] 50.0-59.9, adult ==

== ENCOUNTER → 2020-01-16 | Outpatient (CLI) | payer OTHER, MEDICARE | LOC: HYPER 10:54 | PROVIDERS: ATTEND Emergency Medicine | DX: L97.822 Non-pressure chronic ulcer of other part of left lower leg with fat layer exposed (principal); L97.222 Non-pressure chronic ulcer of left calf with fat layer exposed; R60.0 Localized edema; I89.0 Lymphedema, not elsewhere classified; I87.2 Venous insufficiency (chronic) (peripheral); I10 Essential (primary) hypertension; I48.20 Chronic atrial fibrillation, unspecified; I25.10 Atherosclerotic heart disease of native coronary artery without angina pectoris; E66.01 Morbid (severe) obesity due to excess calories; M19.90 Unspecified osteoarthritis, unspecified site; F41.9 Anxiety disorder, unspecified; Z68.43 Body mass index [BMI] 50.0-59.9, adult; Z85.6 Personal history of leukemia ==

== ENCOUNTER → 2020-02-05 | Outpatient (CLI) | payer OTHER, MEDICARE | LOC: HYPER 13:34 | PROVIDERS: ATTEND Emergency Medicine | DX: L97.822 Non-pressure chronic ulcer of other part of left lower leg with fat layer exposed (principal); L97.222 Non-pressure chronic ulcer of left calf with fat layer exposed; L97.811 Non-pressure chronic ulcer of other part of right lower leg limited to breakdown of skin; I89.0 Lymphedema, not elsewhere classified; I87.2 Venous insufficiency (chronic) (peripheral); I48.20 Chronic atrial fibrillation, unspecified; I12.9 Hypertensive chronic kidney disease with stage 1 through stage 4 chronic kidney disease, or unspecified chronic kidney disease; N18.9 Chronic kidney disease, unspecified; I25.10 Atherosclerotic heart disease of native coronary artery without angina pectoris; M19.90 Unspecified osteoarthritis, unspecified site; E66.01 Morbid (severe) obesity due to excess calories; Z68.43 Body mass index [BMI] 50.0-59.9, adult; Z85.6 Personal history of leukemia ==

== ENCOUNTER → 2020-03-04 | Outpatient (CLI) | payer OTHER, MEDICARE | LOC: HYPER 13:23 | PROVIDERS: ATTEND Emergency Medicine | DX: L97.822 Non-pressure chronic ulcer of other part of left lower leg with fat layer exposed (principal); L97.222 Non-pressure chronic ulcer of left calf with fat layer exposed; L97.811 Non-pressure chronic ulcer of other part of right lower leg limited to breakdown of skin; I87.2 Venous insufficiency (chronic) (peripheral); I89.0 Lymphedema, not elsewhere classified; C91.10 Chronic lymphocytic leukemia of B-cell type not having achieved remission; I48.91 Unspecified atrial fibrillation; I10 Essential (primary) hypertension; I25.10 Atherosclerotic heart disease of native coronary artery without angina pectoris; M19.90 Unspecified osteoarthritis, unspecified site; E66.01 Morbid (severe) obesity due to excess calories; F41.9 Anxiety disorder, unspecified; Z68.43 Body mass index [BMI] 50.0-59.9, adult ==

== ENCOUNTER → 2020-03-25 | Outpatient (CLI) | payer OTHER, MEDICARE | LOC: HYPER 13:22 | PROVIDERS: ATTEND Emergency Medicine | DX: I89.0 Lymphedema, not elsewhere classified (principal); L97.822 Non-pressure chronic ulcer of other part of left lower leg with fat layer exposed; L97.811 Non-pressure chronic ulcer of other part of right lower leg limited to breakdown of skin; R60.0 Localized edema; I87.2 Venous insufficiency (chronic) (peripheral); C91.10 Chronic lymphocytic leukemia of B-cell type not having achieved remission; E66.01 Morbid (severe) obesity due to excess calories; I10 Essential (primary) hypertension; I48.20 Chronic atrial fibrillation, unspecified; I25.10 Atherosclerotic heart disease of native coronary artery without angina pectoris; M19.90 Unspecified osteoarthritis, unspecified site; F41.9 Anxiety disorder, unspecified; Z68.43 Body mass index [BMI] 50.0-59.9, adult ==

== ENCOUNTER 2020-04-30 16:51 | Inpatient (IN) | payer OTHER, MEDICARE ==
[~2020-04-30] VITALS: Ht 167.6 cm; Wt 162.8 kg
[~2020-04-30 16:51] MED LIST changes: -DORYX MPC120 MG PO; -K-DUR 20 MEQ T20 MEQ PO; -NEURONTIN 300M300 M2 PO; -TORSEMIDE20 MG PO
[2020-04-30 16:58] VITALS: BP 169/87
[2020-04-30] MEDS ORDERED: TORSEMIDE20 MG PO (17:27)
[2020-04-30] MEDS ORDERED: NEURONTIN 300M300 M2 PO (17:28)
[2020-04-30] MEDS ORDERED: DORYX MPC120 MG PO (17:28)
[2020-04-30 19:42] LABS: HEMOGLOBIN 11.6 gm/dL (12.0-15.0); MCH 21.9 pg (26.0-34.0); MCHC 29.8 g/dL (28.0-37.0); MCV 73.4 fL (80.0-100.0); PLATELET COUNT 308 thou/uL (150-400); RBC 5.31 mil/uL (4.20-5.00); RDW 19.5 % (10.5-14.5); WBC 25.1 thou/uL (4.0-11.0)
[2020-04-30 19:48] LABS: CALCIUM 10.8 mg/dL (8.5-10.1); CREATININE 0.9 mg/dL (0.6-1.0)
[2020-04-30 19:54] LABS: ALBUMIN 3.9 g/dL (3.4-5.0); TOTAL BILIRUBIN 0.6 mg/dL (0.2-1.0); TOTAL PROTEIN 7.4 g/dL (6.4-8.2)
[2020-04-30 20:01] LABS: ABSOLUTE NEUTROPHILS 6.3 thou/uL (1.4-8.2); ANISOCYTOSIS 1+
[2020-04-30 20:02] LABS: HYPOCHROMASIA SLIGHT; LARGE PLATELETS OCCASIONAL; MICROCYTES SLIGHT
[2020-04-30 21:20] VITALS: BP 158/81
--- NOTE | 2020-04-30 21:23 | NUR ---
Called to give report but was told RNs are busy and will call back
[2020-04-30 22:38] VITALS: BP 160/73
[2020-04-30 22:45] VITALS: BP 151/76
[2020-05-01 04:01] VITALS: BP 108/61
[2020-05-01 05:24] LABS: HEMATOCRIT 34.2 % (37.0-47.0); HEMOGLOBIN 10.2 gm/dL (12.0-15.0); MCH 22.3 pg (26.0-34.0); MCHC 29.8 g/dL (28.0-37.0); MCV 74.8 fL (80.0-100.0); RBC 4.57 mil/uL (4.20-5.00); RDW 19.6 % (10.5-14.5); WBC 15.3 thou/uL (4.0-11.0)
[2020-05-01 05:44] LABS: CALCIUM 9.8 mg/dL (8.5-10.1); CREATININE 0.8 mg/dL (0.6-1.0); POTASSIUM 4.9 mmol/L (3.5-5.1)
--- NOTE | 2020-05-01 06:19 | NUR ---
PT ARRIVED FROM THE ER. A&OX4. ADMISSION DONE AND PT ORIENTED TO THE UNIT. IV INTACT ABX GIVEN. PT UP WITH SBA TO THE BSC. CELLUITIS ON BLE. WOUND PICTURES TAKEN. HYDROCODONE GIVEN FOR PAIN. FALL PREC IN PLACE AND WILL CONT TO MONITOR
[2020-05-01 08:39] VITALS: BP 154/55
[2020-05-01] MEDS ORDERED: K-DUR 20 MEQ T20 MEQ PO (09:16)
--- NOTE | 2020-05-01 13:02 | NUR ---
PT CARE ASSUMED AT 0700. A&Ox4. PT UP TO THE RECLINER WITH LEGS ELEVATED. LEGS WEEPING, THE RIGHT MORE THEN THE LEFT. CONSULT FOR WOUNDCARE PENDING. POSSIBLE SURGERY FOR DEBRIMENT AFTER WOUNDCARE INPUT. IV PATENT WITH NO REDNESS OR EDEMA, SALINE LOCKED WITH ABX INFUSING. CALL LIGHT IN REACH. WILL CONTINUE TO MONITOR.
--- NOTE | 2020-05-01 13:19 | NUR ---
ASSESSMENT: CM REVIEWED CHART AND SPOKE WITH PT. PT IS ALERT AND ORIENTED X4. PT WAS ADMITTED DUE TO CELLULITIS. WOUND CARE AND SURGERY HAVE BEEN CONSULTED AND PT IS ON IV ANBX. PT REPORTS LIVING AT HOME WITH HER . PT REPORTS ABOUT 4 STEPS TO ENTER THE HOME AND NO STEPS ONCE INSIDE. PT STATES SHE HAS A CANE AND WALKER. PT REPORTS HAVING [facility] IN THE PAST AND HAS ALSO BEEN TO [facility] THAT SHE DID NOT CARE FOR SHE STATES. CM DISCUSSED ROLE. PHYSICAL THERAPY MET WITH PT AND RECOMMENDING POSSIBLE HH VS POST ACUTE CARE AT D/C. PT REPORTS SHE WANTS TO SEE HOW SHE PROGRESSES. CM WILL CONTINUE TO FOLLOW TO ASSIST NEEDED.
[2020-05-01 16:05] VITALS: BP 136/66
[2020-05-01 19:21] VITALS: BP 134/62
--- NOTE | 2020-05-01 21:28 | NUR ---
ASSESSMENT COMPLEDTED. PT IS ALERT AND ORIENTED X 4. TOOK HS MEDS OKAY. DENIES ANY SOA OR COUGH. AFEBRILE. CONTINUES ON IV ABTS. MORPHINE CREAM APPLIED TO LEGS. PT HAS ELEVATED THE LEGS ON PILLOWS. PAIN WELL MANAGED WITH THE TIME OXY. PT DENIES ANY CONCERNS.
[2020-05-02 04:25] VITALS: BP 141/67
[2020-05-02 07:40] VITALS: BP 127/56
[2020-05-02 08:01] LABS: OBSERVED RETIC COUNT 1.48 % (0.6-2.6)
[2020-05-02 08:05] LABS: % SATURATION 6 % (20-39); IRON 22 ug/dL (50-170); TIBC 387 ug/dL (250-450)
[2020-05-02] MEDS ORDERED: XARELTO20 MG PO (12:26)
--- NOTE | 2020-05-02 12:59 | NUR ---
on-going assessment: CM REVIEWED CHART. SURGEON SAW PATIENT AND PT WILL REMAIN ON IV ANBX AND CONTINUE TO GET WOUND CARE. IF NO IMPROVEMENT PT MAY BENEFIT FROM DEBRIDEMENT EARLY NEXT WEEK. KEVIN SPOKE WITH PT ABOUT LIKELY NEED FOR SHE REPORTS SHE REALLY LIKED [facility]. CM CONTACTED 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 CM NOTIFIED PT AND SHE STATES SHE WILL LIKELY BE AGREEABLE TO THIS. [facility] FAX:[phone]. KEVIN SPOKE WITH JUAN PABLO FROM [facility] TO NOTIFY HER. NO PLANS FOR WEEKEND DISCHARGE CM WILL FOLLOW UP ON TUESDAY.
[2020-05-02 15:02] VITALS: BP 127/56
[2020-05-02 15:39] VITALS: BP 113/64
--- NOTE | 2020-05-02 20:14 | NUR ---
PT CARE ASSUMED AT 0700. A7Ox4. PT WOUNDCARE DONE TO LEGS. PT UP IN RECLINER ALL DAY WITH LEGS ELEVATED ON STEPSTOOL. IV PATENT WITH NO REDNESS OR EDEMA, SALINE LOCKED. PT RECEIVED MEROPENEM AND VANCOMYCIN STARTED REACTING TO ONE OF THEM WITH REDNESS AND ITCHING TO THE IV SITE. DR. KENT INFORMED. VANCOMYCIN DC'D AND ONE TIME DOSE OF BENADRYL ORDERED. THIS NURSE ENTERED THE ROOM PATIENT WAS STANDING AND LEANING FORWARD URINATING ON THE FLOOR INSTEAD OF CALLING OUT TO USE THE BATHROOM. THIS OCCURED TWO MORE TIMES DURING THE SHIFT. PT POSSIBLE SURGERY ON TUESDAY FOR DEBRIEMENT PER SURGEON. FALL PROTOCOL IN PLACE. CALL LIGHT IN REACH. REPORT GIVEN TO NGUYỄN ZAMAN.
[2020-05-02 21:32] VITALS: BP 135/62
--- NOTE | 2020-05-03 03:39 | NUR ---
PT RATES PAIN TO LEGS AT AROUND 2/10, REQUIRES SBA TO THE BSC.PT VOIDING OKAY. VSS. IV TO RFA-NEWLY PLACED. RASH TO NECK AND CHEST AREA LOOKS BETTER. LASIX SCHEDULED LAST NOC NOT GIVEN DUE TO INFILTRATED PIV. PT DENIES N/V. LEGS WELL WRAPPED-PT ENCOURAGED TO ELEVATE LEGS.CONTINUES ON IV ABTS. NO FURTHER CONCERNS.
[2020-05-03 05:48] LABS: CALCIUM 10.1 mg/dL (8.5-10.1); CREATININE 1.1 mg/dL (0.6-1.0); POTASSIUM 4.1 mmol/L (3.5-5.1)
[2020-05-03 07:33] VITALS: BP 129/48
[2020-05-03 08:15] VITALS: BP 129/48
[2020-05-03 12:15] VITALS: BP 96/42
[2020-05-03 16:05] VITALS: BP 96/42
[2020-05-03 16:17] VITALS: BP 96/42
--- NOTE | 2020-05-03 18:46 | NUR ---
PT CARE ASSUMED AT 0700. ASSESSMENTS CHARTED. MEDICATIONS CHARTED. RFA IV. BSC; SOME INCONTINENCE. I&D NEXT TUESDAY. HOLD XARELTO TUESDAY. POSSIBLE DISCHARGE EARLY NEXT WEEK IF DEBRIDEMENT DOESN'T HAPPEN, HOME WITH HOME HEALTH. WOUND CARE PERFORMED BILAT KNEES TO TOES.
[2020-05-03 20:07] VITALS: BP 137/55
--- NOTE | 2020-05-04 04:15 | NUR ---
PATIENT ALERT AND ORIENTED X4. COOPERATIVE WITH CARE. REQUIRES EXTRA TIME WITH MANY NEEDS. IVPB INFUSED W/O COMPLICATION. BILATERAL LOWER LEG DRESSINGS ARE D/I. MEDICATED FOR PAIN X1. UP TO BSC WITH ONE ASSIST. 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 RESTING IN BED AT TIME OF NOTE. WILL MONITOR.
[2020-05-04 07:55] VITALS: BP 123/53
[2020-05-04 10:05] LABS: HEMATOCRIT 32.9 % (37.0-47.0); MCH 22.1 pg (26.0-34.0); MCHC 30.5 g/dL (28.0-37.0); MCV 72.4 fL (80.0-100.0); RBC 4.54 mil/uL (4.20-5.00); RDW 19.2 % (10.5-14.5); WBC 14.4 thou/uL (4.0-11.0)
[2020-05-04 10:16] LABS: CALCIUM 10.3 mg/dL (8.5-10.1); CREATININE 1.3 mg/dL (0.6-1.0); INR 1.3; PROTIME 13.2 Seconds (9.3-11.4)
--- NOTE | 2020-05-04 14:12 | NUR ---
ASSUMED CARE OF PATIENT SHE ATE BREAKFAST TOOK AM PILLS ATE LUNCH AND IS SITTING IN BEDSIDE CHAIR. PT STARTED ON IV VANCO FOREARM RED AND EDEMATOUS. STOPPED FLUIDS IV NURSE CALLED. PT IS ALERT XS 4 PLEASANT AND COOPERATIVE WITH CARE.
[2020-05-04 16:10] VITALS: BP 143/98
[2020-05-04 18:53] VITALS: BP 121/42
[2020-05-05 04:25] VITALS: BP 130/67
--- NOTE | 2020-05-05 04:28 | NUR ---
PATIENT ALERT AND ORIENTED X4. UP IN CHAIR AT SHIFT CHANGE. RETURNED TO BED WITH SBA. IVPB INFUSED W/O COMPLICATION. THIS NURSE RE-WRAPPED LOWER LEGS PER PATIENT REQUEST. DENIES PAIN. WILL MONITOR.
[2020-05-05 07:34] VITALS: BP 108/54
--- NOTE | 2020-05-05 07:37 | NUR ---
ASSUMED CARE OF PATIENT AT THIS TIME PT SLEEPING NO PAIN OR RESP DISTRESS.
--- NOTE | 2020-05-05 12:50 | NUR ---
ON-GOING ASSESSMENT: CM REVIEWED CHART AND SPOKE WITH ATTENDING. PT REMAINS ON IV ANTIBIOTICS. WOUND CARE IS FOLLOWING AND TO LOOK AT WOUND AND DECIDE ON FURTHER RECOMMENDATIONS AND WHETHER OR NOT PT WILL REQUIRE ANOTHER DEBRIDEMENT TO HER WOUND (POSSIBLY TUESDAY IF NEEDED). SURGERY IS FOLLOWING PATIENT WELL. WILL AWAIT FURTHER INPUT FROM WOUND CARE TEAM. [facility] IS FOLLOWING PT BUT SHE MUST BE AGREEABLE TO LET THEM IN HER HOME IN ORDER FOR THEM TO AGREE TO SEE PATIENT FOR HOME HEALTH (PER SHIRA PT IS A HOARDER AND WOULD ONLY LET THEM SEE PT ON HER PORCH LAST TIME BUT STATE DUE TO COLD TEMPERATURES IN THE WINTER SHE MUST LET THEM IN HER HOME IN ORDER FOR THEM TO ACCEPT HER).
[2020-05-05 17:10] VITALS: BP 148/66
[2020-05-05 19:00] VITALS: BP 136/60
--- NOTE | 2020-05-05 20:23 | NUR ---
PATIENT TO BE NPO AT MIDNIGHT. DR POWERS TO TO DEBRIDEMENT LOWER EXTREMITES. 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 SPOKE WITH NIKA NURSE WITH DR IRIZARRY SHE STATED CAME BY TO SEE PATIENT BUT SHE WAS ASLEEP AND THEY DID NOT NEED TO SEE HER DR POWERS WAS DO[facility]
[2020-05-06] VITALS (8 sets, daily range): BP systolic 118–149; BP diastolic 42–66
--- NOTE | 2020-05-06 08:22 | NUR ---
ASSUMED PT CARE AT 1900.PT UP TO THE BSC WITH SBA.DRSG TO HER BLE CHANGED AT SHIFT CHANGE BY AM NURSE.PT CONT ON IV ABX ORDERED.PT NPO SINCE [place] FOR SURGERY THIS AM.HYDROCORTIZONE CREAM TO THE REDNESS ON HER CHEST.AM ATENOLOL GIVEN PRIOR TO SURGERY PER PROTOCOL.PT WAS PICKED UP AT 0640 AM.REPORT TO AM NURSE.
[2020-05-06 10:27] LABS: HEMATOCRIT 36.8 % (37.0-47.0); HEMOGLOBIN 11.1 gm/dL (12.0-15.0); MCH 22.2 pg (26.0-34.0); MCHC 30.2 g/dL (28.0-37.0); MCV 73.4 fL (80.0-100.0); PLATELET COUNT 226 thou/uL (150-400); RBC 5.01 mil/uL (4.20-5.00); RDW 19.2 % (10.5-14.5)
[2020-05-06 10:37] LABS: CALCIUM 10.3 mg/dL (8.5-10.1); POTASSIUM 4.6 mmol/L (3.5-5.1)
[2020-05-06 11:12] LABS: ABSOLUTE NEUTROPHILS 7.9 thou/uL (1.4-8.2); ATYPICAL LYMPHS 2 %
[2020-05-06 11:13] LABS: ANISOCYTOSIS 2+; HYPOCHROMASIA 1+; MICROCYTES 1+
--- NOTE | 2020-05-06 12:16 | NUR ---
Pt already fetched by OR staff during shift change. Back to room at 1030am, transferred safely. On room air. Post op vital signs stable. On MS, not on telemetry; no complains and signs of chest pain, crushing sensation and heaviness. Assisted in ADLs. Started on clear liquids, tolerated well; no nausea, no vomiting and no abdominal pain noted; may have heart healthy diet for lunch. Continent of bowel and bladder. With SL at R FA- on IV antibiotics. Falls bundle in place. Post op dressing C/D/I- kept extremities elevated. Complained of pain, due PRN pain meds given as prescribed. Missed medications from this AM given as prescribed. To continue monitoring patient.
--- NOTE | 2020-05-06 13:15 | NUR ---
Assess due to pt with extreme class III obesity, BMI 61.6, and with cellulitis, lymphedema, wounds to lower extremities requiring debridement. Wt gain about 50 lb over past year, likely with fluid and impaired mobility. Eating well, 100%. Pt mentioned cannot cook at home due to limitations and eats carry out or fast foods. States cannot afford any meal delivery services. ? qualify for Meals on Wheels. CM following. Suggest grocery delivery of at least fruits/vegetables and basic unprocessed [place] from larger grocery store chains if possible. Low nutrition risk
--- NOTE | 2020-05-06 14:40 | NUR ---
ON-GOING ASSESSMENT: CM REVIEWED CHART. PT HAD DEBRIDEMENT TODAY. PT REMAINS ON IV ANBX. CM WILL CONTINUE TO FOLLOW TO ASSIST NEEDED.
--- NOTE | 2020-05-07 02:12 | NUR ---
ASSUMED PT CARE AT AROUND 1915 HRS. PT OBSERVED SITTING IN CHAIR. PT REQUIRES SBA TO THE BSC. SHE HAS DIFFICULTY WIPING HERSELF DUE TO R SHOULDER PAIN/STIFFNESS. POST OP DRESSING TO BLE. LEGS ELEVATED WHILE PT IN BED. STILL SOME REDNESS TO CHEST AND R INNER ELBOW-HYDROCORTISONE CREAM APPLIED.CONTINUES ON IV ABTS. AFEBRILE.CALL LIGHT WITHIN REACH.
[2020-05-07 02:50] VITALS: BP 122/62
[2020-05-07 07:47] VITALS: BP 169/92
--- NOTE | 2020-05-07 15:07 | NUR ---
on-going assessment: CM REVIEWED CHART. PT REMAINS ON IV ANBX. [facility] HAS BEEN CONSULTED TO SEE PATIENT. AWAITING INPUT AT THIS TIME. CM MET WITH PT WHO IS AGREEABLE FOR [facility] IF THEY CAN ACCEPT OR IF NOT SHE IS AGREEABLE TO RETURN HOME WITH [facility]. KEVIN NOTIFIED [facility] PATIENT MAY POSSIBLY BE DISCHARGE TOMORROW. KEVIN SPOKE WITH ATTENDING WHO REPORTS PT WILL TRANSITION TO ORAL ANTIBIOTICS AT TIME OF DISCHARGE.
[2020-05-07 16:57] VITALS: BP 156/80
--- NOTE | 2020-05-08 03:19 | NUR ---
ASSUMED PT CARE AT AROUND 1915 HRS. DRESING TO BLE C/D/I. PT REQUIRESSBA TO USE BSC. ON TIMED PAIN MEDS WHICH IS HELPING WITH THE PAIN. AFEBRILE, CONTINUES ON IV ABTS. POSSIBILITY OF D/C TOMORROW?
[2020-05-08 08:58] VITALS: BP 121/66
--- NOTE | 2020-05-08 11:17 | NUR ---
Assumed care of pt at 0700. Pt a&ox4. Pain controlled with scheduled pain meds. IV antibiotics infusing. BLE wrapped by lymphedema nurse. Planning to go home with home health. Call light within reach. Will continue to monitor.
[2020-05-08] MEDS ORDERED: CEFDINIR300 MG PO (12:42)
[2020-05-08] MEDS ORDERED: PEPCID20 MG PO (12:42)
[2020-05-08] MEDS ORDERED: ACETAMINOPHEN325 M1 PO (12:42)
[2020-05-08] MEDS ORDERED: IRON325 PO (12:42)
[2020-05-08] MEDS ORDERED: HYDROCODON-ACE1 EAC7 PO (12:42)
[2020-05-08] MEDS ORDERED: OXYCONTIN10 M1 PO (12:42)
--- NOTE | 2020-05-08 14:04 | NUR ---
ON-GOING ASSESSMENT: CM REVIEWED CHART. PT HAS ORDERS TO DISCHARGE HOME TODAY WITH HOME HEALTH. CM NOTIFIED [facility] OF DISCHARGE AND FAXED THEM DISCHARGE ORDERS. CM SPOKE WITH PT WHO AGREES TO HOME HEALTH AND LETTING THEM IN HER HOME. PT REPORTS NOT HAVING ANY FURTHER NEEDS FROM CM AT THIS TIME. PT IS FAMILIAR WITH [facility] THEY HAVE PREVIOUSLY HAD THEM.
[2020-05-08 15:15] VITALS: BP 127/56
--- NOTE | 2020-05-08 16:50 | HC ---
[facility] [place] [address] CONSULTATION Name: TERI INGRAM Room #: 443-P [facility] IN .R.#: [id number] Admission: 04/30/20 Attend Phys: Obed Etienne MD Discharge: 05/08/20 Date of : 51 Report #: [id number] THIS REPORT FOR: cc: Lemuel Zarate MD, Steven A. MD Stephens, Thad A. MD ~ DATE OF SERVICE: 05/01/2020 WOUND CARE CONSULTATION PERSONAL PHYSICIAN: Dr. Lemuel Zarate CHIEF COMPLAINT: Bilateral lower extremity edema with cellulitis and ulceration. HISTORY OF PRESENT ILLNESS: This is a 64-year-old white female who I saw in clinic yesterday afternoon for increasing bilateral lower extremity edema, erythema, drainage and progressive ulcerations, which have been not responded to outpatient doxycycline. The patient was complaining of severe pain in both legs with anytime touching of the wounds. The patient states she felt miserable and was agreeable to being admitted for IV antibiotics and surgical evaluation and possible Misonix debridement of the posterior calf ulcers bilaterally. The patient was started on IV meropenem and vancomycin last night and actually states that she feels much better today. Her legs are not nearly as painful as they were yesterday. The patient denies any actual fevers or chills. The patient denies any chest pain or shortness of breath. The patient denies any other associated ulcerations. PAST MEDICAL HISTORY: Significant for atrial fibrillation, chronic lymphocytic leukemia, leukocytosis, urinary tract infection, hypertension, morbid obesity, osteoarthritis, chronic back pain, chronic venous insufficiency with secondary lymphedema, peripheral neuropathy. CURRENT MEDICATIONS: Multiple, I reviewed the patient's medication list. DRUG ALLERGIES: AUGMENTIN. SOCIAL HISTORY: The patient does not smoke tobacco or drink alcohol. Lives at home with her . FAMILY HISTORY: Not pertinent for current medical condition. REVIEW OF SYSTEMS: CONSTITUTIONAL: The patient denies fevers or chills. NEUROLOGIC: The patient has overall generalized weakness, but denies isolated [facility] [address] [place] [address] CONSULTATION Name: JUAN JOSETERI L Room #: 443-P [facility].#: [id number] Admission: 04/30/20 Attend Phys: Obed Etienne MD Discharge: 05/08/20 Date of : 51 Report #: [id number] weakness in arms or legs. EYES: No complaints. ENT: No complaints. CARDIAC: The patient denies chest pain, shortness of breath, but has chronic bilateral lymphedema. RESPIRATORY: The patient denies shortness breath, cough or wheezes. GASTROINTESTINAL: The patient denies nausea, vomiting, abdominal pain. GENITOURINARY: The patient had urgency, but does have frequency. MUSCULOSKELETAL: No chronic back pain. SKIN: There are venous leg ulcers on both bilateral calves with cellulitis. PHYSICAL EXAMINATION: VITAL SIGNS: Temperature 37.0, pulse 61, respirations 18, BP 136/66. GENERAL: This is a morbidly obese white female who is in no acute distress at this time. HEENT: Normocephalic, atraumatic. Mucous membranes are somewhat dry. Pupils are round. Sclerae white. NECK: Without JVD. LUNGS: Slight diminished breath sounds heard throughout. HEART: Regular. ABDOMEN: Obese, soft, nontender. EXTREMITIES: Evaluation of bilateral lower extremities reveals 4+ edema with erythema, warmth and tenderness bilaterally. Distal pulses are intact. On the posterior calf, there is yellowish slough that is fairly superficial, but exquisitely tender to palpation. There is no sign of any deeper ulcerations. There are no signs of tunneling or undermining. NEUROLOGIC: Cranial nerves 2-12 grossly intact. Motor and sensory grossly intact. LABORATORY DATA: White count 15.3, hemoglobin 10.2. COVID-19 test was negative. BUN 17, creatinine 0.8, albumin 3.9. IMPRESSION: 1. Chronic venous leg ulcers, limited breakdown of subcutaneous tissues with associated cellulitis. 2. Chronic lymphedema secondary to chronic venous insufficiency with massive edema. 3. Generalized debility. 4. Morbid obesity. PLAN: At this time, General Surgery consultation will be placed for Misonix debridement in the operating room. We will start morphine, Silvadene cream to the bilateral lower extremities, cover this with Xeroform, ABD, Kerlix and Jarred from toes to knee. Have patient elevate her legs as much as possible. Continue [address] [address] CONSULTATION Name: TERI INGRAM Room #: 443-P [facility] IN M.R.#: [id number] Admission: 04/30/20 Attend Phys: Obed Etienne MD Discharge: 05/08/20 Date of : 51 Report #: [id number] all other current medications including IV antibiotics. We will continue to follow the patient. <ELECTRONICALLY SIGNED> By: Luis Daniel Templeton MD 05/08/20 [id number] [id number] Luis Daniel Templeton MD /nt
--- NOTE | 2020-05-09 16:32 | NUR ---
KEVIN RECEIVD A CALL FROM [facility] STATING PT DID NOT GET A SCRIPT FOR HER MORPHINE/SILVADENE CREAM AND ARE TO SEE HER TOMORROW AND WERE NEEDING THIS CALLED IN. KEVIN REACHED OUT TO ATTENDING DR. LAUREANO HE REPORTS HE TRIED TO CALL IT IN BUT IT NEEDS TO BE DONE AT A COMPOUND PHARMACY ([facility] CAN DO THIS) BUT IT HAS TO BE A HAND WRITTEN SCRIPT. KEVIN REACHED OUT TO NIKA IN WOUND CARE WHO REPORTS TO HAVE HH CONTACT [phone] AND THEY WILL GET THEM TO THE PHYSICIAN ASSIST[employer] FLOOR COVERING AND USE [employer]ER[employer] UNTIL IT CAN BE FILLED. WOUND CARE CLINIC WILL THEN FOLLOW UP WITH PT (PER NIKA AND SHE IS LEAVING THEM A MESSAGE).
== END 2020-05-08 16:46 | disposition home health service (06) | DRG 570 ==
LOC: ER 16:51 → 4S 20:10 → EROBS 20:10 → 4S 22:31
PROVIDERS: Hospitalist; Internal Medicine; Nurse Practitioner Family; Physician Assistant; ADMIT Hospitalist; ATTEND Hospitalist
PROC: 0JBN0ZZ Excision of Right Lower Leg Subcutaneous Tissue and Fascia, Open Approach (ICD-10-PCS; principal; 2020-05-06)
PROC: 0JBP0ZZ Excision of Left Lower Leg Subcutaneous Tissue and Fascia, Open Approach (ICD-10-PCS; principal; 2020-05-06)
DX: L03.116 Cellulitis of left lower limb (principal); I50.33 Acute on chronic diastolic (congestive) heart failure; L97.929 Non-pressure chronic ulcer of unspecified part of left lower leg with unspecified severity; L97.919 Non-pressure chronic ulcer of unspecified part of right lower leg with unspecified severity; C91.10 Chronic lymphocytic leukemia of B-cell type not having achieved remission; N39.0 Urinary tract infection, site not specified; Z68.43 Body mass index [BMI] 50.0-59.9, adult; I48.20 Chronic atrial fibrillation, unspecified; I89.0 Lymphedema, not elsewhere classified; I11.0 Hypertensive heart disease with heart failure; L03.115 Cellulitis of right lower limb; Z96.611 Presence of right artificial shoulder joint; E66.01 Morbid (severe) obesity due to excess calories; M19.90 Unspecified osteoarthritis, unspecified site; G89.29 Other chronic pain; M54.9 Dorsalgia, unspecified; G62.9 Polyneuropathy, unspecified; I87.2 Venous insufficiency (chronic) (peripheral); E78.5 Hyperlipidemia, unspecified; S81.802A Unspecified open wound, left lower leg, initial encounter; M48.00 Spinal stenosis, site unspecified; D50.9 Iron deficiency anemia, unspecified; S81.801A Unspecified open wound, right lower leg, initial encounter; B96.1 Klebsiella pneumoniae [K. pneumoniae] as the cause of diseases classified elsewhere; R32 Unspecified urinary incontinence; N32.81 Overactive bladder; N28.9 Disorder of kidney and ureter, unspecified; B96.4 Proteus (mirabilis) (morganii) as the cause of diseases classified elsewhere; Z88.1 Allergy status to other antibiotic agents; Z88.8 Allergy status to other drugs, medicaments and biological substances; Z90.5 Acquired absence of kidney; X58.XXXA Exposure to other specified factors, initial encounter; Y93.89 Activity, other specified; Y92.89 Other specified places as the place of occurrence of the external cause; Y99.8 Other external cause status; Z79.01 Long term (current) use of anticoagulants; Z20.822 Contact with and (suspected) exposure to COVID-19
CPT/HCPCS: 10195; 50010; 50101; 50386; 57119; 57120; 62110; 62900; 70005

== ENCOUNTER → 2020-04-30 | Outpatient (CLI) | payer OTHER, MEDICARE ==
[~2020-04-30] MED LIST changes: +DORYX MPC120 MG PO; +K-DUR 20 MEQ T20 MEQ PO; +NEURONTIN 300M300 M2 PO; +TORSEMIDE20 MG PO
== END ==
LOC: HYPER 11:31
PROVIDERS: ATTEND Emergency Medicine
DX: I89.0 Lymphedema, not elsewhere classified (principal); L97.822 Non-pressure chronic ulcer of other part of left lower leg with fat layer exposed; L97.812 Non-pressure chronic ulcer of other part of right lower leg with fat layer exposed; R60.0 Localized edema; I87.2 Venous insufficiency (chronic) (peripheral); C91.10 Chronic lymphocytic leukemia of B-cell type not having achieved remission; E66.01 Morbid (severe) obesity due to excess calories; I10 Essential (primary) hypertension; I48.20 Chronic atrial fibrillation, unspecified; I25.10 Atherosclerotic heart disease of native coronary artery without angina pectoris; M19.90 Unspecified osteoarthritis, unspecified site; F41.9 Anxiety disorder, unspecified; Z68.43 Body mass index [BMI] 50.0-59.9, adult

== ENCOUNTER → 2020-05-27 | Outpatient (CLI) | payer OTHER, MEDICARE ==
[~2020-05-27] MED LIST changes: +ACETAMINOPHEN325 M1 PO; +CEFDINIR300 MG PO; +DORYX MPC120 MG PO; +HYDROCODON-ACE1 EAC7 PO; +IRON325 PO; +K-DUR 20 MEQ T20 MEQ PO; +NEURONTIN 300M300 M2 PO; +PEPCID20 MG PO; +TORSEMIDE20 MG PO; +XARELTO20 MG PO
== END ==
LOC: HYPER 08:53
PROVIDERS: ATTEND Emergency Medicine
DX: I89.0 Lymphedema, not elsewhere classified (principal); L97.822 Non-pressure chronic ulcer of other part of left lower leg with fat layer exposed; L97.812 Non-pressure chronic ulcer of other part of right lower leg with fat layer exposed; I87.2 Venous insufficiency (chronic) (peripheral); R60.0 Localized edema; E66.01 Morbid (severe) obesity due to excess calories; I10 Essential (primary) hypertension; I48.20 Chronic atrial fibrillation, unspecified; I25.10 Atherosclerotic heart disease of native coronary artery without angina pectoris; M19.90 Unspecified osteoarthritis, unspecified site; F41.9 Anxiety disorder, unspecified; Z68.43 Body mass index [BMI] 50.0-59.9, adult; Z85.6 Personal history of leukemia

== ENCOUNTER → 2020-06-17 | Outpatient (CLI) | payer OTHER, MEDICARE | LOC: HYPER 12:54 | PROVIDERS: ATTEND Emergency Medicine | DX: L97.822 Non-pressure chronic ulcer of other part of left lower leg with fat layer exposed (principal); L97.812 Non-pressure chronic ulcer of other part of right lower leg with fat layer exposed; I87.2 Venous insufficiency (chronic) (peripheral); I89.0 Lymphedema, not elsewhere classified; R60.0 Localized edema; I48.20 Chronic atrial fibrillation, unspecified; C91.10 Chronic lymphocytic leukemia of B-cell type not having achieved remission; I12.9 Hypertensive chronic kidney disease with stage 1 through stage 4 chronic kidney disease, or unspecified chronic kidney disease; N18.9 Chronic kidney disease, unspecified; I25.10 Atherosclerotic heart disease of native coronary artery without angina pectoris; M19.90 Unspecified osteoarthritis, unspecified site; E66.01 Morbid (severe) obesity due to excess calories; F41.9 Anxiety disorder, unspecified; Z68.43 Body mass index [BMI] 50.0-59.9, adult; Z79.899 Other long term (current) drug therapy; Z98.890 Other specified postprocedural states ==

== ENCOUNTER → 2020-07-17 | Outpatient (CLI) | payer OTHER, MEDICARE | LOC: HYPER 08:51 | PROVIDERS: ATTEND Emergency Medicine Emergency Medical Services | DX: L97.822 Non-pressure chronic ulcer of other part of left lower leg with fat layer exposed (principal); L97.812 Non-pressure chronic ulcer of other part of right lower leg with fat layer exposed; I87.2 Venous insufficiency (chronic) (peripheral); I89.0 Lymphedema, not elsewhere classified; R60.0 Localized edema; I48.20 Chronic atrial fibrillation, unspecified; C91.10 Chronic lymphocytic leukemia of B-cell type not having achieved remission; I12.9 Hypertensive chronic kidney disease with stage 1 through stage 4 chronic kidney disease, or unspecified chronic kidney disease; N18.9 Chronic kidney disease, unspecified; I25.10 Atherosclerotic heart disease of native coronary artery without angina pectoris; M19.90 Unspecified osteoarthritis, unspecified site; E66.01 Morbid (severe) obesity due to excess calories; F41.9 Anxiety disorder, unspecified; Z68.43 Body mass index [BMI] 50.0-59.9, adult; Z79.899 Other long term (current) drug therapy; Z98.890 Other specified postprocedural states ==

== ENCOUNTER → 2020-07-18 | Outpatient (CLI) | payer OTHER, MEDICARE | LOC: SJCVC 14:32 | PROVIDERS: ATTEND Internal Medicine Cardiovascular Disease | DX: R94.31 Abnormal electrocardiogram [ECG] [EKG] (principal); I10 Essential (primary) hypertension; E78.00 Pure hypercholesterolemia, unspecified; I48.91 Unspecified atrial fibrillation; E66.9 Obesity, unspecified; Z87.891 Personal history of nicotine dependence; Z88.1 Allergy status to other antibiotic agents; Z79.899 Other long term (current) drug therapy ==

== ENCOUNTER → 2020-08-07 | Outpatient (CLI) | payer OTHER, MEDICARE ==
[~2020-08-07] MED LIST changes: +ULTRA-LIGHT RO1 EACH; +VOLTAREN GEL 1100 G2 TOP
== END ==
LOC: HYPER 11:11
PROVIDERS: ATTEND Emergency Medicine
DX: L89.892 Pressure ulcer of other site, stage 2 (principal); L97.811 Non-pressure chronic ulcer of other part of right lower leg limited to breakdown of skin; I89.0 Lymphedema, not elsewhere classified; I87.2 Venous insufficiency (chronic) (peripheral); I48.20 Chronic atrial fibrillation, unspecified; I12.9 Hypertensive chronic kidney disease with stage 1 through stage 4 chronic kidney disease, or unspecified chronic kidney disease; N18.30 Chronic kidney disease, stage 3 unspecified; C91.10 Chronic lymphocytic leukemia of B-cell type not having achieved remission; I25.10 Atherosclerotic heart disease of native coronary artery without angina pectoris; M19.90 Unspecified osteoarthritis, unspecified site; R60.0 Localized edema; E66.01 Morbid (severe) obesity due to excess calories; Z68.43 Body mass index [BMI] 50.0-59.9, adult; Z79.899 Other long term (current) drug therapy

== ENCOUNTER 2020-08-08 11:45 | Emergency (ER) | payer OTHER, MEDICARE ==
[~2020-08-08] VITALS: Ht 162.6 cm; Wt 154.2 kg
[~2020-08-08 11:45] MED LIST changes: -ULTRA-LIGHT RO1 EACH; -VOLTAREN GEL 1100 G2 TOP
[2020-08-08] MEDS ORDERED: VOLTAREN GEL 1100 G2 TOP (13:18)
[2020-08-08 14:11] VITALS: BP 162/75
[2020-08-08] MEDS ORDERED: ULTRA-LIGHT RO1 EACH (14:13)
== END 2020-08-08 14:28 | disposition home or self-care (01) ==
LOC: ER 11:45
DX: M13.861 Other specified arthritis, right knee (principal); I48.91 Unspecified atrial fibrillation; Z79.01 Long term (current) use of anticoagulants; Z88.1 Allergy status to other antibiotic agents; Z79.899 Other long term (current) drug therapy

== ENCOUNTER → 2020-08-22 | Outpatient (CLI) | payer OTHER, MEDICARE ==
[~2020-08-22] MED LIST changes: +ULTRA-LIGHT RO1 EACH; +VOLTAREN GEL 1100 G2 TOP
== END ==
LOC: SJCVC 14:04
PROVIDERS: ATTEND Internal Medicine Cardiovascular Disease
DX: E78.00 Pure hypercholesterolemia, unspecified (principal); I10 Essential (primary) hypertension; I48.0 Paroxysmal atrial fibrillation; I35.0 Nonrheumatic aortic (valve) stenosis; R60.0 Localized edema; Z79.899 Other long term (current) drug therapy; Z88.1 Allergy status to other antibiotic agents

== ENCOUNTER → 2020-08-28 | Outpatient (CLI) | payer OTHER, MEDICARE | LOC: HYPER 07:59 | PROVIDERS: ATTEND Emergency Medicine | DX: L97.222 Non-pressure chronic ulcer of left calf with fat layer exposed (principal); L97.522 Non-pressure chronic ulcer of other part of left foot with fat layer exposed; I89.0 Lymphedema, not elsewhere classified; R60.0 Localized edema; C91.10 Chronic lymphocytic leukemia of B-cell type not having achieved remission; E66.01 Morbid (severe) obesity due to excess calories; I48.20 Chronic atrial fibrillation, unspecified; I12.9 Hypertensive chronic kidney disease with stage 1 through stage 4 chronic kidney disease, or unspecified chronic kidney disease; N18.30 Chronic kidney disease, stage 3 unspecified; I87.2 Venous insufficiency (chronic) (peripheral); I25.10 Atherosclerotic heart disease of native coronary artery without angina pectoris; M19.90 Unspecified osteoarthritis, unspecified site; F41.9 Anxiety disorder, unspecified; Z68.43 Body mass index [BMI] 50.0-59.9, adult; Z79.899 Other long term (current) drug therapy ==

== ENCOUNTER → 2020-09-23 | Outpatient (CLI) | payer OTHER, MEDICARE | LOC: HYPER 08:23 | PROVIDERS: ATTEND Emergency Medicine | DX: L97.222 Non-pressure chronic ulcer of left calf with fat layer exposed (principal); I89.0 Lymphedema, not elsewhere classified; R60.0 Localized edema; C91.10 Chronic lymphocytic leukemia of B-cell type not having achieved remission; E66.01 Morbid (severe) obesity due to excess calories; I48.20 Chronic atrial fibrillation, unspecified; I12.9 Hypertensive chronic kidney disease with stage 1 through stage 4 chronic kidney disease, or unspecified chronic kidney disease; N18.30 Chronic kidney disease, stage 3 unspecified; I87.2 Venous insufficiency (chronic) (peripheral); I25.10 Atherosclerotic heart disease of native coronary artery without angina pectoris; M19.90 Unspecified osteoarthritis, unspecified site; F41.9 Anxiety disorder, unspecified; Z68.43 Body mass index [BMI] 50.0-59.9, adult ==

== ENCOUNTER → 2020-10-21 | Outpatient (CLI) | payer OTHER, MEDICARE | LOC: HYPER 07:55 | PROVIDERS: ATTEND Emergency Medicine | DX: L97.222 Non-pressure chronic ulcer of left calf with fat layer exposed (principal); S90.415A Abrasion, left lesser toe(s), initial encounter; I89.0 Lymphedema, not elsewhere classified; R60.0 Localized edema; C91.10 Chronic lymphocytic leukemia of B-cell type not having achieved remission; E66.01 Morbid (severe) obesity due to excess calories; I48.20 Chronic atrial fibrillation, unspecified; I12.9 Hypertensive chronic kidney disease with stage 1 through stage 4 chronic kidney disease, or unspecified chronic kidney disease; N18.30 Chronic kidney disease, stage 3 unspecified; I87.2 Venous insufficiency (chronic) (peripheral); I25.10 Atherosclerotic heart disease of native coronary artery without angina pectoris; M19.90 Unspecified osteoarthritis, unspecified site; F41.9 Anxiety disorder, unspecified; Z68.43 Body mass index [BMI] 50.0-59.9, adult; X58.XXXA Exposure to other specified factors, initial encounter; Y93.89 Activity, other specified; Y92.89 Other specified places as the place of occurrence of the external cause; Y99.8 Other external cause status ==

== ENCOUNTER → 2020-11-25 | Outpatient (CLI) | payer OTHER, MEDICARE | LOC: HYPER 08:08 | PROVIDERS: ATTEND Emergency Medicine | DX: L97.212 Non-pressure chronic ulcer of right calf with fat layer exposed (principal); I87.2 Venous insufficiency (chronic) (peripheral); I89.0 Lymphedema, not elsewhere classified; R60.0 Localized edema; I48.20 Chronic atrial fibrillation, unspecified; C91.10 Chronic lymphocytic leukemia of B-cell type not having achieved remission; I12.9 Hypertensive chronic kidney disease with stage 1 through stage 4 chronic kidney disease, or unspecified chronic kidney disease; N18.9 Chronic kidney disease, unspecified; I25.10 Atherosclerotic heart disease of native coronary artery without angina pectoris; M19.90 Unspecified osteoarthritis, unspecified site; E66.01 Morbid (severe) obesity due to excess calories; Z68.43 Body mass index [BMI] 50.0-59.9, adult; Z79.899 Other long term (current) drug therapy ==

== ENCOUNTER → 2021-01-06 | Outpatient (CLI) | payer OTHER, MEDICARE | LOC: HYPER 08:00 | PROVIDERS: ATTEND Emergency Medicine | DX: L97.212 Non-pressure chronic ulcer of right calf with fat layer exposed (principal); L97.222 Non-pressure chronic ulcer of left calf with fat layer exposed; I87.2 Venous insufficiency (chronic) (peripheral); I89.0 Lymphedema, not elsewhere classified; R60.0 Localized edema; C91.10 Chronic lymphocytic leukemia of B-cell type not having achieved remission; E66.01 Morbid (severe) obesity due to excess calories; I12.9 Hypertensive chronic kidney disease with stage 1 through stage 4 chronic kidney disease, or unspecified chronic kidney disease; N18.9 Chronic kidney disease, unspecified; I48.20 Chronic atrial fibrillation, unspecified; I25.10 Atherosclerotic heart disease of native coronary artery without angina pectoris; M19.90 Unspecified osteoarthritis, unspecified site; F41.9 Anxiety disorder, unspecified; Z68.43 Body mass index [BMI] 50.0-59.9, adult ==

== ENCOUNTER → 2021-01-30 | Outpatient (CLI) | payer OTHER, MEDICARE | LOC: SJCVC 14:27 | PROVIDERS: ATTEND Internal Medicine Cardiovascular Disease | DX: I48.0 Paroxysmal atrial fibrillation (principal); I10 Essential (primary) hypertension; E78.00 Pure hypercholesterolemia, unspecified; I35.0 Nonrheumatic aortic (valve) stenosis; R60.0 Localized edema; E66.9 Obesity, unspecified; Z79.899 Other long term (current) drug therapy; Z88.1 Allergy status to other antibiotic agents; Z88.8 Allergy status to other drugs, medicaments and biological substances ==

== ENCOUNTER → 2021-02-12 | Outpatient (CLI) | payer OTHER, MEDICARE ==
[~2021-02-12] MED LIST changes: +DOXYCYCLINE 10100 M2 PO
== END ==
LOC: HYPER 08:55
PROVIDERS: ATTEND Emergency Medicine
DX: L97.212 Non-pressure chronic ulcer of right calf with fat layer exposed (principal); L97.222 Non-pressure chronic ulcer of left calf with fat layer exposed; I87.2 Venous insufficiency (chronic) (peripheral); I89.0 Lymphedema, not elsewhere classified; R60.0 Localized edema; C91.10 Chronic lymphocytic leukemia of B-cell type not having achieved remission; E66.01 Morbid (severe) obesity due to excess calories; I12.9 Hypertensive chronic kidney disease with stage 1 through stage 4 chronic kidney disease, or unspecified chronic kidney disease; N18.9 Chronic kidney disease, unspecified; I48.20 Chronic atrial fibrillation, unspecified; I25.10 Atherosclerotic heart disease of native coronary artery without angina pectoris; M19.90 Unspecified osteoarthritis, unspecified site; F41.9 Anxiety disorder, unspecified; Z68.43 Body mass index [BMI] 50.0-59.9, adult

== ENCOUNTER → 2021-02-13 | Outpatient (CLI) | payer OTHER, MEDICARE ==
[~2021-02-13] VITALS: Ht 162.6 cm; Wt 154.0 kg
[2021-02-13 09:45] VITALS: BP 150/81
[2021-02-13 10:04] LABS: HEMATOCRIT 36.7 % (37.0-47.0); HEMOGLOBIN 11.1 gm/dL (12.0-15.0); MCH 23.3 pg (26.0-34.0); MCHC 30.4 g/dL (28.0-37.0); MCV 76.5 fL (80.0-100.0); RBC 4.79 mil/uL (4.20-5.00); RDW 17.6 % (10.5-14.5); WBC 18.5 thou/uL (4.0-11.0)
[2021-02-13 10:16] LABS: CREATININE 0.9 mg/dL (0.6-1.0); POTASSIUM 4.5 mmol/L (3.5-5.1)
== END | disposition home or self-care (01) ==
LOC: CATH 07:02
PROVIDERS: ATTEND Nuclear Medicine Nuclear Cardiology
DX: I87.1 Compression of vein (principal); I87.323 Chronic venous hypertension (idiopathic) with inflammation of bilateral lower extremity; R22.43 Localized swelling, mass and lump, lower limb, bilateral; I48.0 Paroxysmal atrial fibrillation; I10 Essential (primary) hypertension; E78.00 Pure hypercholesterolemia, unspecified; E66.01 Morbid (severe) obesity due to excess calories; Z98.890 Other specified postprocedural states; Z79.899 Other long term (current) drug therapy; Z96.611 Presence of right artificial shoulder joint; Z88.8 Allergy status to other drugs, medicaments and biological substances

== ENCOUNTER → 2021-03-05 | Outpatient (CLI) | payer OTHER, MEDICARE | LOC: HYPER 09:03 | PROVIDERS: ATTEND Emergency Medicine | DX: L97.212 Non-pressure chronic ulcer of right calf with fat layer exposed (principal); L97.222 Non-pressure chronic ulcer of left calf with fat layer exposed; L97.812 Non-pressure chronic ulcer of other part of right lower leg with fat layer exposed; I87.2 Venous insufficiency (chronic) (peripheral); I89.0 Lymphedema, not elsewhere classified; R60.0 Localized edema; C91.10 Chronic lymphocytic leukemia of B-cell type not having achieved remission; E66.01 Morbid (severe) obesity due to excess calories; I12.9 Hypertensive chronic kidney disease with stage 1 through stage 4 chronic kidney disease, or unspecified chronic kidney disease; N18.9 Chronic kidney disease, unspecified; I48.20 Chronic atrial fibrillation, unspecified; I25.10 Atherosclerotic heart disease of native coronary artery without angina pectoris; M19.90 Unspecified osteoarthritis, unspecified site; F41.9 Anxiety disorder, unspecified; Z68.43 Body mass index [BMI] 50.0-59.9, adult ==

== ENCOUNTER → 2021-03-26 | Outpatient (CLI) | payer OTHER, MEDICARE | LOC: HYPER 08:53 | PROVIDERS: ATTEND Emergency Medicine | DX: L97.212 Non-pressure chronic ulcer of right calf with fat layer exposed (principal); L97.222 Non-pressure chronic ulcer of left calf with fat layer exposed; L97.812 Non-pressure chronic ulcer of other part of right lower leg with fat layer exposed; I87.2 Venous insufficiency (chronic) (peripheral); I89.0 Lymphedema, not elsewhere classified; R60.0 Localized edema; C91.10 Chronic lymphocytic leukemia of B-cell type not having achieved remission; E66.01 Morbid (severe) obesity due to excess calories; I12.9 Hypertensive chronic kidney disease with stage 1 through stage 4 chronic kidney disease, or unspecified chronic kidney disease; N18.9 Chronic kidney disease, unspecified; I48.20 Chronic atrial fibrillation, unspecified; I25.10 Atherosclerotic heart disease of native coronary artery without angina pectoris; M19.90 Unspecified osteoarthritis, unspecified site; F41.9 Anxiety disorder, unspecified; Z68.43 Body mass index [BMI] 50.0-59.9, adult ==

== ENCOUNTER → 2021-05-05 | Outpatient (CLI) | payer OTHER, MEDICARE | LOC: HYPER 09:26 | PROVIDERS: ATTEND Emergency Medicine | DX: L97.212 Non-pressure chronic ulcer of right calf with fat layer exposed (principal); L97.222 Non-pressure chronic ulcer of left calf with fat layer exposed; L97.812 Non-pressure chronic ulcer of other part of right lower leg with fat layer exposed; I87.2 Venous insufficiency (chronic) (peripheral); I89.0 Lymphedema, not elsewhere classified; R60.0 Localized edema; C91.10 Chronic lymphocytic leukemia of B-cell type not having achieved remission; E66.01 Morbid (severe) obesity due to excess calories; I12.9 Hypertensive chronic kidney disease with stage 1 through stage 4 chronic kidney disease, or unspecified chronic kidney disease; N18.9 Chronic kidney disease, unspecified; I48.20 Chronic atrial fibrillation, unspecified; I25.10 Atherosclerotic heart disease of native coronary artery without angina pectoris; M19.90 Unspecified osteoarthritis, unspecified site; F41.9 Anxiety disorder, unspecified; Z68.43 Body mass index [BMI] 50.0-59.9, adult ==

== ENCOUNTER → 2021-06-03 | Outpatient (CLI) | payer OTHER, MEDICARE | LOC: HYPER 13:57 | PROVIDERS: ATTEND Emergency Medicine | DX: L97.222 Non-pressure chronic ulcer of left calf with fat layer exposed (principal); L97.212 Non-pressure chronic ulcer of right calf with fat layer exposed; I70.235 Atherosclerosis of native arteries of right leg with ulceration of other part of foot; L97.511 Non-pressure chronic ulcer of other part of right foot limited to breakdown of skin; I87.2 Venous insufficiency (chronic) (peripheral); I89.0 Lymphedema, not elsewhere classified; R60.0 Localized edema; I48.20 Chronic atrial fibrillation, unspecified; I10 Essential (primary) hypertension; C91.10 Chronic lymphocytic leukemia of B-cell type not having achieved remission; I25.10 Atherosclerotic heart disease of native coronary artery without angina pectoris; M19.90 Unspecified osteoarthritis, unspecified site; E66.01 Morbid (severe) obesity due to excess calories; F41.9 Anxiety disorder, unspecified; Z68.43 Body mass index [BMI] 50.0-59.9, adult; Z79.899 Other long term (current) drug therapy ==